=== PATIENT | male | born 1960 | race Caucasian/White ===

== ENCOUNTER → 2016-05-20 | Outpatient (CLI) | payer OTHER ==
[2016-05-20 10:18] LABS: INR 2.2
== END ==
LOC: M LAB 09:37
PROVIDERS: ATTEND Internal Medicine Cardiovascular Disease
DX: Z51.81 Encounter for therapeutic drug level monitoring (principal); Z79.01 Long term (current) use of anticoagulants; I74.8 Embolism and thrombosis of other arteries

== ENCOUNTER → 2016-06-18 | Outpatient (CLI) | payer OTHER ==
[2016-06-18 08:11] LABS: INR 2.67
== END ==
LOC: M LAB 07:33
PROVIDERS: ATTEND Internal Medicine Cardiovascular Disease
DX: I74.8 Embolism and thrombosis of other arteries (principal)

== ENCOUNTER → 2016-07-15 | Outpatient (CLI) | payer OTHER ==
[2016-07-15 07:21] LABS: INR 2.72
== END ==
LOC: M LAB 06:36
PROVIDERS: ATTEND Internal Medicine Cardiovascular Disease
DX: Z51.81 Encounter for therapeutic drug level monitoring (principal); Z79.01 Long term (current) use of anticoagulants

== ENCOUNTER → 2016-08-07 | Outpatient (CLI) | payer OTHER ==
[2016-08-07 07:45] LABS: INR 2.08
== END ==
LOC: M LAB 07:11
PROVIDERS: ATTEND Internal Medicine Cardiovascular Disease
DX: Z51.81 Encounter for therapeutic drug level monitoring (principal); Z79.01 Long term (current) use of anticoagulants; E78.2 Mixed hyperlipidemia

== ENCOUNTER → 2016-08-31 | Outpatient (CLI) | payer OTHER ==
[2016-08-31 08:02] LABS: ALBUMIN 3.9 GM/DL (3.2-5.2); ALBUMIN/GLOBULIN RATIO 1.15 (1.00-1.93); ALKALINE PHOSPHATASE 170 U/L (45-117); ALT/SGPT 16 U/L (12-78); ANION GAP 7 MEQ/L (8-16); AST/SGOT 27 U/L (15-37); BILIRUBIN,TOTAL 0.4 MG/DL (0.2-1.0); BLOOD UREA NITROGEN 15 MG/DL (7-18); CALCIUM LEVEL 8.7 MG/DL (8.5-10.1); CARBON DIOXIDE LEVEL 28 MEQ/L (21-32); CHLORIDE LEVEL 106 MEQ/L (98-107); CHOLESTEROL LEVEL 136 MG/DL (<200); CREATININE FOR GFR 1.25 MG/DL (0.70-1.30); GLOMERULAR FILTRATION RATE > 60.0 (>56); GLUCOSE, FASTING 98 MG/DL (70-105); POTASSIUM SERUM 4.2 MEQ/L (3.5-5.1); SODIUM LEVEL 141 MEQ/L (136-145); TOTAL PROTEIN 7.3 GM/DL (6.4-8.2); TRIGLYCERIDES LEVEL 145 MG/DL (<150)
== END ==
LOC: M LAB 06:56
PROVIDERS: ATTEND Nurse Practitioner Family
DX: E78.5 Hyperlipidemia, unspecified (principal)

== ENCOUNTER → 2016-09-07 | Outpatient (CLI) | payer OTHER ==
[2016-09-07 09:35] LABS: INR 1.97
== END ==
LOC: M LAB 09:02
PROVIDERS: ATTEND Internal Medicine Cardiovascular Disease
DX: Z51.81 Encounter for therapeutic drug level monitoring (principal); Z79.01 Long term (current) use of anticoagulants

== ENCOUNTER → 2016-09-18 | Outpatient (CLI) | payer OTHER ==
[2016-09-18 09:16] LABS: INR 1.94
== END ==
LOC: M LAB 08:49
PROVIDERS: ATTEND Internal Medicine Cardiovascular Disease
DX: Z51.81 Encounter for therapeutic drug level monitoring (principal); Z79.01 Long term (current) use of anticoagulants

== ENCOUNTER → 2016-10-02 | Outpatient (CLI) | payer OTHER ==
[2016-10-02 09:58] LABS: INR 2.08
== END ==
LOC: M LAB 08:58
PROVIDERS: ATTEND Internal Medicine Cardiovascular Disease
DX: Z51.81 Encounter for therapeutic drug level monitoring (principal); Z79.01 Long term (current) use of anticoagulants

== ENCOUNTER → 2016-10-16 | Outpatient (CLI) | payer OTHER ==
[2016-10-16 08:17] LABS: INR 2.23
== END ==
LOC: M LAB 06:55
PROVIDERS: ATTEND Internal Medicine Cardiovascular Disease
DX: Z79.01 Long term (current) use of anticoagulants (principal)

== ENCOUNTER → 2016-11-13 | Outpatient (CLI) | payer OTHER ==
[2016-11-13 09:38] LABS: INR 1.9
== END ==
LOC: M LAB 09:07
PROVIDERS: ATTEND Internal Medicine Cardiovascular Disease
DX: Z51.81 Encounter for therapeutic drug level monitoring (principal); Z79.01 Long term (current) use of anticoagulants

== ENCOUNTER → 2016-11-27 | Outpatient (CLI) | payer OTHER ==
[2016-11-27 10:09] LABS: INR 2.36
== END ==
LOC: M LAB 09:11
PROVIDERS: ATTEND Internal Medicine Cardiovascular Disease
DX: Z79.01 Long term (current) use of anticoagulants (principal); Z51.81 Encounter for therapeutic drug level monitoring

== ENCOUNTER → 2016-12-09 | Outpatient (REF) | payer OTHER ==
[2016-12-09 14:35] LABS: MEAN CORPUSCULAR HEMOGLOBIN 31.3 pg (27.0-33.0); MEAN CORPUSCULAR HGB CONC 34.6 g/dl (32.0-36.5); MEAN CORPUSCULAR VOLUME 90.5 fl (80.0-96.0); RED CELL DISTRIBUTION WIDTH 13.4 % (11.5-14.5); WHITE BLOOD COUNT 9.3 K/mm3 (4.0-10.0)
[2016-12-09 14:38] LABS: ALBUMIN 3.9 GM/DL (3.2-5.2); ALBUMIN/GLOBULIN RATIO 1.18 (1.00-1.93); ALKALINE PHOSPHATASE 133 U/L (45-117); ALT/SGPT 17 U/L (12-78); ANION GAP 10 MEQ/L (8-16); AST/SGOT 25 U/L (15-37); BILIRUBIN,TOTAL 0.4 MG/DL (0.2-1.0); BLOOD UREA NITROGEN 13 MG/DL (7-18); CALCIUM LEVEL 8.6 MG/DL (8.5-10.1); CARBON DIOXIDE LEVEL 26 MEQ/L (21-32); CHLORIDE LEVEL 108 MEQ/L (98-107); CHOLESTEROL LEVEL 137 MG/DL (<200); CREATININE FOR GFR 1.19 MG/DL (0.70-1.30); GLOMERULAR FILTRATION RATE > 60.0 (>56); GLUCOSE, FASTING 95 MG/DL (70-105); POTASSIUM SERUM 3.8 MEQ/L (3.5-5.1); SODIUM LEVEL 144 MEQ/L (136-145); TOTAL PROTEIN 7.2 GM/DL (6.4-8.2); TRIGLYCERIDES LEVEL 297 MG/DL (<150)
== END ==
LOC: M LAB REF 13:42
PROVIDERS: ATTEND Nurse Practitioner Family
DX: E78.5 Hyperlipidemia, unspecified (principal); E55.9 Vitamin D deficiency, unspecified; I25.10 Atherosclerotic heart disease of native coronary artery without angina pectoris; Z12.5 Encounter for screening for malignant neoplasm of prostate; I10 Essential (primary) hypertension; R53.81 Other malaise

== ENCOUNTER → 2016-12-11 | Outpatient (CLI) | payer OTHER ==
[2016-12-11 10:37] LABS: INR 1.87
== END ==
LOC: M LAB 09:18
PROVIDERS: ATTEND Internal Medicine Cardiovascular Disease
DX: Z51.81 Encounter for therapeutic drug level monitoring (principal); Z79.01 Long term (current) use of anticoagulants

== ENCOUNTER → 2016-12-25 | Outpatient (CLI) | payer OTHER ==
[2016-12-25 09:54] LABS: INR 2.24
== END ==
LOC: M LAB 09:10
PROVIDERS: ATTEND Internal Medicine Cardiovascular Disease
DX: Z51.81 Encounter for therapeutic drug level monitoring (principal); Z79.01 Long term (current) use of anticoagulants

== ENCOUNTER → 2017-01-08 | Outpatient (CLI) | payer OTHER ==
[2017-01-08 11:52] LABS: INR 2.06
== END ==
LOC: M LAB 09:55
PROVIDERS: ATTEND Internal Medicine Cardiovascular Disease
DX: I51.3 Intracardiac thrombosis, not elsewhere classified (principal)

== ENCOUNTER → 2017-01-22 | Outpatient (CLI) | payer OTHER ==
[2017-01-22 10:18] LABS: INR 2.83
== END ==
LOC: M LAB 09:10
PROVIDERS: ATTEND Internal Medicine Cardiovascular Disease
DX: I51.3 Intracardiac thrombosis, not elsewhere classified (principal)

== ENCOUNTER → 2017-02-09 | Outpatient (REF) | payer OTHER ==
[2017-02-09 14:40] LABS: BASO % 0.2 % (0.0-1.0); EOS # 0.3 10^3/uL (0.0-0.50); EOS % 3.7 % (0.0-3.0); IMMATURE GRANULOCYTE % 0.3 % (0-0); LYMPH # 2.3 10^3/uL (1.5-4.5); LYMPH % 26.1 % (24.0-44.0); MEAN CORPUSCULAR HEMOGLOBIN 30.2 pg (27.0-33.0); MEAN CORPUSCULAR HGB CONC 33.3 g/dl (32.0-36.5); MEAN CORPUSCULAR VOLUME 90.7 fl (80.0-96.0); MONO # 0.8 10^3/uL (0.0-0.8); MONO % 9.7 % (0.0-5.0); NEUTROPHILS # 5.2 10^3/uL (1.8-7.7); PLATELET COUNT, AUTOMATED 333 10^3/uL (150-450); RED CELL DISTRIBUTION WIDTH 13.6 % (11.5-14.5); WHITE BLOOD COUNT 8.7 10^3/uL (4.0-10.0)
== END ==
LOC: M LAB REF 11:51
PROVIDERS: ATTEND Nurse Practitioner Family
DX: D64.9 Anemia, unspecified (principal); Z79.01 Long term (current) use of anticoagulants

== ENCOUNTER → 2017-02-12 | Outpatient (CLI) | payer OTHER ==
[2017-02-12 10:19] LABS: INR 2.64
== END ==
LOC: M LAB 09:27
PROVIDERS: ATTEND Internal Medicine Cardiovascular Disease
DX: I51.3 Intracardiac thrombosis, not elsewhere classified (principal)

== ENCOUNTER → 2017-04-09 | Outpatient (CLI) | payer OTHER ==
[2017-04-09 10:45] LABS: INR 2.26
== END ==
LOC: M LAB 09:33
PROVIDERS: ATTEND Internal Medicine Cardiovascular Disease
DX: I51.3 Intracardiac thrombosis, not elsewhere classified (principal)

== ENCOUNTER → 2017-05-07 | Outpatient (CLI) | payer OTHER ==
[2017-05-07 09:25] LABS: INR 2.44
== END ==
LOC: M LAB 08:51
DX: I51.3 Intracardiac thrombosis, not elsewhere classified (principal)
CPT/HCPCS: 85610

== ENCOUNTER → 2017-05-11 | Outpatient (REF) | payer OTHER ==
[2017-05-11 12:19] LABS: BASO % 0.3 % (0.0-1.0); EOS # 0.4 10^3/uL (0.0-0.50); EOS % 4.6 % (0.0-3.0); HEMATOCRIT 40.3 % (42.0-52.0); HEMOGLOBIN 13.8 g/dl (14.0-18.0); IMMATURE GRANULOCYTE % 0.4 % (0-0); LYMPH # 2.4 10^3/uL (1.5-4.5); LYMPH % 25.6 % (24.0-44.0); MEAN CORPUSCULAR HEMOGLOBIN 30.3 pg (27.0-33.0); MEAN CORPUSCULAR HGB CONC 34.2 g/dl (32.0-36.5); MEAN CORPUSCULAR VOLUME 88.6 fl (80.0-96.0); MONO % 10.7 % (0.0-5.0); NEUTROPHILS # 5.4 10^3/uL (1.8-7.7); NEUTROPHILS % 58.4 % (36.0-66.0); PLATELET COUNT, AUTOMATED 336 10^3/uL (150-450); RED BLOOD COUNT 4.55 10^6/uL (4.30-6.10); RED CELL DISTRIBUTION WIDTH 13.5 % (11.5-14.5); WHITE BLOOD COUNT 9.2 10^3/uL (4.0-10.0)
[2017-05-11 12:54] LABS: TOTAL 25(OH) VITAMIN D 37.1 NG/ML (30.0-100.0)
[2017-05-11 12:56] LABS: ALBUMIN 3.8 GM/DL (3.2-5.2); ALBUMIN/GLOBULIN RATIO 1.19 (1.00-1.93); ALKALINE PHOSPHATASE 124 U/L (45-117); ALT/SGPT 15 U/L (12-78); ANION GAP 7 MEQ/L (8-16); AST/SGOT 23 U/L (7-37); BILIRUBIN,TOTAL 0.4 MG/DL (0.2-1.0); BLOOD UREA NITROGEN 12 MG/DL (7-18); CALCIUM LEVEL 8.6 MG/DL (8.5-10.1); CARBON DIOXIDE LEVEL 28 MEQ/L (21-32); CHLORIDE LEVEL 108 MEQ/L (98-107); CHOLESTEROL LEVEL 136 MG/DL (<200); CHOLESTEROL RISK RATIO 4.387 (<5); CREATININE FOR GFR 1.22 MG/DL (0.70-1.30); GLOMERULAR FILTRATION RATE > 60.0 (>56); GLUCOSE, FASTING 90 MG/DL (70-105); HDL CHOLESTEROL 31 MG/DL (>40); LDL CHOLESTEROL 45.6 MG/DL (<100); NON-HDL-C 105 MG/DL; SODIUM LEVEL 143 MEQ/L (136-145); TRIGLYCERIDES LEVEL 297 MG/DL (<150)
== END ==
LOC: M LAB REF 11:59
DX: I10 Essential (primary) hypertension (principal); E55.9 Vitamin D deficiency, unspecified
CPT/HCPCS: 82306

== ENCOUNTER → 2017-06-04 | Outpatient (CLI) | payer OTHER ==
[2017-06-04 08:54] LABS: INR 2.52; PROTHROMBIN TIME 28.2 SECONDS (12.4-14.5)
== END ==
LOC: M LAB 08:06
DX: I51.3 Intracardiac thrombosis, not elsewhere classified (principal)
CPT/HCPCS: 85610

== ENCOUNTER → 2017-07-09 | Outpatient (CLI) | payer OTHER ==
[2017-07-09 09:54] LABS: INR 2.34; PROTHROMBIN TIME 26.5 SECONDS (12.4-14.5)
== END ==
LOC: M LAB 08:34
DX: I51.3 Intracardiac thrombosis, not elsewhere classified (principal)
CPT/HCPCS: 85610

== ENCOUNTER → 2017-07-30 | Outpatient (CLI) | payer OTHER ==
[2017-07-30 08:41] LABS: INR 2.36; PROTHROMBIN TIME 26.7 SECONDS (12.4-14.5)
== END ==
LOC: M LAB 07:29
DX: I51.3 Intracardiac thrombosis, not elsewhere classified (principal)
CPT/HCPCS: 85610

== ENCOUNTER → 2017-07-30 | Outpatient (CLI) | payer OTHER ==
[2017-07-30 08:17] LABS: BASO % 0.1 % (0.0-1.0); EOS # 0.3 10^3/uL (0.0-0.50); HEMATOCRIT 41.3 % (42.0-52.0); HEMOGLOBIN 14.2 g/dl (14.0-18.0); IMMATURE GRANULOCYTE % 0.4 % (0-3.0); LYMPH # 2.2 10^3/uL (1.5-4.5); LYMPH % 26.8 % (24.0-44.0); MEAN CORPUSCULAR HEMOGLOBIN 30.7 pg (27.0-33.0); MEAN CORPUSCULAR HGB CONC 34.4 g/dl (32.0-36.5); MEAN CORPUSCULAR VOLUME 89.2 fl (80.0-96.0); MONO # 0.8 10^3/uL (0.0-0.8); MONO % 10.1 % (0.0-5.0); NEUTROPHILS # 4.9 10^3/uL (1.8-7.7); NEUTROPHILS % 58.6 % (36.0-66.0); PLATELET COUNT, AUTOMATED 304 10^3/uL (150-450); RED BLOOD COUNT 4.63 10^6/uL (4.30-6.10); RED CELL DISTRIBUTION WIDTH 13.6 % (11.5-14.5); WHITE BLOOD COUNT 8.3 10^3/uL (4.0-10.0)
[2017-07-30 08:51] LABS: ANION GAP 7 MEQ/L (8-16); BLOOD UREA NITROGEN 12 MG/DL (7-18); CALCIUM LEVEL 8.7 MG/DL (8.5-10.1); CARBON DIOXIDE LEVEL 29 MEQ/L (21-32); CHLORIDE LEVEL 106 MEQ/L (98-107); CREATININE FOR GFR 1.21 MG/DL (0.70-1.30); GLOMERULAR FILTRATION RATE > 60.0 (>56); GLUCOSE, FASTING 110 MG/DL (70-100); SODIUM LEVEL 142 MEQ/L (136-145)
[2017-07-30 14:31] LABS: INR 2.36; PROTHROMBIN TIME 26.7 SECONDS (12.4-14.5)
== END ==
LOC: M LAB 07:34
DX: I35.9 Nonrheumatic aortic valve disorder, unspecified (principal)
CPT/HCPCS: 80048

== ENCOUNTER → 2017-08-05 | Outpatient (CLI) | payer OTHER ==
[2017-08-05 08:54] LABS: INR 2.49; PROTHROMBIN TIME 27.9 SECONDS (12.4-14.5)
== END ==
LOC: M LAB 07:56
DX: I35.9 Nonrheumatic aortic valve disorder, unspecified (principal)
CPT/HCPCS: 85610

== ENCOUNTER → 2017-08-27 | Outpatient (CLI) | payer OTHER ==
[2017-08-27 10:19] LABS: INR 2.65; PROTHROMBIN TIME 29.4 SECONDS (12.4-14.5)
== END ==
LOC: M LAB 09:21
DX: I51.3 Intracardiac thrombosis, not elsewhere classified (principal)
CPT/HCPCS: 85610

== ENCOUNTER → 2017-09-24 | Outpatient (CLI) | payer OTHER ==
[2017-09-24 09:34] LABS: INR 2.18; PROTHROMBIN TIME 25.1 SECONDS (12.4-14.5)
== END ==
LOC: M LAB 08:13
DX: I51.3 Intracardiac thrombosis, not elsewhere classified (principal)
CPT/HCPCS: 85610

== ENCOUNTER → 2017-10-22 | Outpatient (CLI) | payer OTHER ==
[2017-10-22 09:40] LABS: PROTHROMBIN TIME 29.8 SECONDS (12.4-14.5)
== END ==
LOC: M LAB 08:46
DX: I25.5 Ischemic cardiomyopathy (principal); Z79.01 Long term (current) use of anticoagulants
CPT/HCPCS: 85610

== ENCOUNTER → 2017-11-19 | Outpatient (CLI) | payer OTHER ==
[2017-11-19 08:21] LABS: INR 2.59; PROTHROMBIN TIME 28.3 SECONDS (12.1-14.4)
== END ==
LOC: M LAB 07:27
DX: I34.9 Nonrheumatic mitral valve disorder, unspecified (principal)
CPT/HCPCS: 85610

== ENCOUNTER → 2017-12-17 | Outpatient (CLI) | payer OTHER ==
[2017-12-17 09:01] LABS: INR 2.31; PROTHROMBIN TIME 25.8 SECONDS (12.1-14.4)
== END ==
LOC: M LAB 07:55
DX: I34.9 Nonrheumatic mitral valve disorder, unspecified (principal)
CPT/HCPCS: 85610

== ENCOUNTER → 2018-01-14 | Outpatient (CLI) | payer OTHER ==
[2018-01-14 09:53] LABS: INR 2.65; PROTHROMBIN TIME 28.8 SECONDS (12.1-14.4)
== END ==
LOC: M LAB 08:54
DX: I34.9 Nonrheumatic mitral valve disorder, unspecified (principal); Z79.01 Long term (current) use of anticoagulants
CPT/HCPCS: 85610

== ENCOUNTER → 2018-02-11 | Outpatient (CLI) | payer OTHER ==
[2018-02-11 09:34] LABS: PROTHROMBIN TIME 28.4 SECONDS (12.1-14.4)
== END ==
LOC: M LAB 08:24
DX: I34.9 Nonrheumatic mitral valve disorder, unspecified (principal)
CPT/HCPCS: 85610

== ENCOUNTER → 2018-02-13 | Outpatient (CLI) | payer OTHER | LOC: M SLEEP 20:00 | DX: R40.0 Somnolence (principal) | CPT/HCPCS: 95810 ==

== ENCOUNTER → 2018-03-11 | Outpatient (CLI) | payer OTHER ==
[2018-03-11 10:13] LABS: INR 2.51; PROTHROMBIN TIME 27.6 SECONDS (12.1-14.4)
== END ==
LOC: M LAB 08:10
DX: I34.9 Nonrheumatic mitral valve disorder, unspecified (principal); Z79.01 Long term (current) use of anticoagulants
CPT/HCPCS: 85610

== ENCOUNTER → 2018-03-22 | Outpatient (CLI) | payer OTHER | LOC: M SLEEP 19:39 | DX: G47.33 Obstructive sleep apnea (adult) (pediatric) (principal) | CPT/HCPCS: 95811 ==

== ENCOUNTER → 2018-04-08 | Outpatient (CLI) | payer OTHER ==
[2018-04-08 07:54] LABS: INR 2.54; PROTHROMBIN TIME 27.9 SECONDS (12.1-14.4)
[2018-04-08 08:11] LABS: ALT/SGPT 22 U/L (12-78); AST/SGOT 26 U/L (7-37); CHOLESTEROL LEVEL 139 MG/DL (<200); CHOLESTEROL RISK RATIO 4.088 (<5); CPK CREATINE PHOSPHOKINASE 97 U/L (39-308); HDL CHOLESTEROL 34 MG/DL (>40); NON-HDL-C 105 MG/DL
[2018-04-08 09:17] LABS: LDL CHOLESTEROL 55 MG/DL (<100); TRIGLYCERIDES LEVEL 252 MG/DL (<150)
== END ==
LOC: M LAB 07:05
DX: I34.9 Nonrheumatic mitral valve disorder, unspecified (principal); Z79.01 Long term (current) use of anticoagulants; I25.5 Ischemic cardiomyopathy
CPT/HCPCS: 84460

== ENCOUNTER → 2018-04-25 | Outpatient (CLI) | payer OTHER ==
[2018-04-25 08:46] LABS: INR 1.77; PROTHROMBIN TIME 20.9 SECONDS (12.1-14.4)
== END ==
LOC: M LAB 07:34
PROVIDERS: ATTEND Internal Medicine Cardiovascular Disease
DX: I34.0 Nonrheumatic mitral (valve) insufficiency (principal); Z79.01 Long term (current) use of anticoagulants

== ENCOUNTER → 2018-04-29 | Outpatient (CLI) | payer OTHER ==
[2018-04-29 08:04] LABS: INR 2.13; PROTHROMBIN TIME 24.2 SECONDS (12.1-14.4)
== END ==
LOC: M LAB 06:56
PROVIDERS: ATTEND Internal Medicine Cardiovascular Disease
DX: I34.9 Nonrheumatic mitral valve disorder, unspecified (principal); Z79.01 Long term (current) use of anticoagulants

== ENCOUNTER → 2018-05-27 | Outpatient (CLI) | payer OTHER ==
[2018-05-27 09:16] LABS: INR 2.67
== END ==
LOC: M LAB 08:10
PROVIDERS: ATTEND Internal Medicine Cardiovascular Disease
DX: Z79.01 Long term (current) use of anticoagulants (principal); I34.9 Nonrheumatic mitral valve disorder, unspecified

== ENCOUNTER → 2018-06-02 | Outpatient (REF) | payer OTHER, MEDICAID ==
[2018-06-02 20:28] LABS: BASO % 0.4 % (0.0-1.0); EOS # 0.3 10^3/uL (0.0-0.50); EOS % 3.5 % (0.0-3.0); HEMATOCRIT 40.8 % (42.0-52.0); HEMOGLOBIN 13.4 g/dl (13.5-17.5); LYMPH # 2.1 10^3/uL (1.5-4.5); LYMPH % 24.8 % (24.0-44.0); MEAN CORPUSCULAR HEMOGLOBIN 30.5 pg (27.0-33.0); MEAN CORPUSCULAR HGB CONC 32.8 g/dl (32.0-36.5); MEAN CORPUSCULAR VOLUME 92.9 fl (80.0-96.0); MONO % 12.3 % (0.0-5.0); NEUTROPHILS % 58.8 % (36.0-66.0); PLATELET COUNT, AUTOMATED 326 10^3/uL (150-450); RED BLOOD COUNT 4.39 10^6/uL (4.30-6.10); WHITE BLOOD COUNT 8.5 10^3/uL (4.0-10.0)
[2018-06-02 20:43] LABS: ALBUMIN 3.7 GM/DL (3.2-5.2); ALT/SGPT 22 U/L (12-78); BILIRUBIN,TOTAL 0.3 MG/DL (0.2-1.0); BLOOD UREA NITROGEN 16 MG/DL (7-18); CALCIUM LEVEL 8.6 MG/DL (8.5-10.1); CARBON DIOXIDE LEVEL 28 MEQ/L (21-32); CHLORIDE LEVEL 107 MEQ/L (98-107); CHOLESTEROL LEVEL 128 MG/DL (<200); CHOLESTEROL RISK RATIO 4.129 (<5); CREATININE FOR GFR 1.15 MG/DL (0.70-1.30); GLOMERULAR FILTRATION RATE > 60.0 (>56); GLUCOSE, FASTING 97 MG/DL (70-100); HDL CHOLESTEROL 31 MG/DL (>40); LDL CHOLESTEROL 39 MG/DL (<100); NON-HDL-C 97 MG/DL; POTASSIUM SERUM 4.3 MEQ/L (3.5-5.1); SODIUM LEVEL 142 MEQ/L (136-145); THYROID STIMULATING HORMONE 0.773 uIU/ML (0.358-3.740); TOTAL PROTEIN 6.8 GM/DL (6.4-8.2); TRIGLYCERIDES LEVEL 292 MG/DL (<150)
[2018-06-02 20:52] LABS: HEMOGLOBIN A1c 5.9 %
== END ==
LOC: M LAB REF 18:49
PROVIDERS: ATTEND Nurse Practitioner Family
DX: E78.5 Hyperlipidemia, unspecified (principal)

== ENCOUNTER → 2018-06-24 | Outpatient (CLI) | payer OTHER ==
[2018-06-24 08:39] LABS: INR 2.11; PROTHROMBIN TIME 24.1 SECONDS (12.1-14.4)
== END ==
LOC: M LAB 08:00
PROVIDERS: ATTEND Internal Medicine Cardiovascular Disease
DX: Z51.81 Encounter for therapeutic drug level monitoring (principal); Z79.01 Long term (current) use of anticoagulants; I34.9 Nonrheumatic mitral valve disorder, unspecified

== ENCOUNTER → 2018-07-21 | Outpatient (CLI) | payer OTHER ==
--- NOTE | 2018-07-26 16:37 | SLEEPCENT ---
DATE OF PROCEDURE: 07/21/2018 ORDERED BY: Bertin Trejo Nocturnal polysomnography was performed for the titration of pressure therapy in this patient with obstructive sleep apnea syndrome. For testing a [email or web address] Simplus full face mask of medium size was used, 12 cm of water pressure was initially applied to the circuit and the lights were extinguished. 7 hours and 46 minutes of data were reviewed. There were 404 minutes of sleep identified. Sleep latency was short at 6 minutes. Rapid eye movement (REM) latency was normal at 84-1/2 minutes. Sleep architecture was good with 4 REM cycles. Overall sleep efficiency 88.6%. The patient's electrocardiogram showed a sinus rhythm with an average heart rate of 64 beats per minute. EEG showed normal waveforms for awake and sleep. Respiratory events were best palliated with continuous positive airway pressure (CPAP) at a pressure of 15. There was some limb activity. Limb movement arousal index was 2.5. IMPRESSION: Obstructive sleep apnea syndrome (G47.33) RECOMMENDATIONS: Nightly use of pressure therapy 15 cm of water.
== END ==
LOC: M SLEEP 19:50
PROVIDERS: ATTEND Physician Assistant
DX: G47.33 Obstructive sleep apnea (adult) (pediatric) (principal)

== ENCOUNTER → 2018-07-22 | Outpatient (CLI) | payer OTHER ==
[2018-07-22 07:41] LABS: INR 2.5; PROTHROMBIN TIME 27.5 SECONDS (12.1-14.4)
== END ==
LOC: M LAB 06:52
PROVIDERS: ATTEND Internal Medicine Cardiovascular Disease
DX: Z51.81 Encounter for therapeutic drug level monitoring (principal); Z79.01 Long term (current) use of anticoagulants; I34.9 Nonrheumatic mitral valve disorder, unspecified

== ENCOUNTER → 2018-08-19 | Outpatient (CLI) | payer OTHER ==
[2018-08-19 08:00] LABS: INR 2.38; PROTHROMBIN TIME 26.5 SECONDS (12.1-14.4)
== END ==
LOC: M LAB 06:54
PROVIDERS: ATTEND Internal Medicine Cardiovascular Disease
DX: Z51.81 Encounter for therapeutic drug level monitoring (principal); Z79.01 Long term (current) use of anticoagulants; I34.9 Nonrheumatic mitral valve disorder, unspecified

== ENCOUNTER → 2018-09-05 | Outpatient (REF) | payer OTHER ==
[2018-09-05 18:18] LABS: BASO % 0.2 % (0.0-1.0); EOS # 0.2 10^3/uL (0.0-0.50); EOS % 2.2 % (0.0-3.0); HEMATOCRIT 42.5 % (42.0-52.0); HEMOGLOBIN 14.1 g/dl (13.5-17.5); LYMPH # 2.1 10^3/uL (1.5-4.5); LYMPH % 24.7 % (24.0-44.0); MEAN CORPUSCULAR HEMOGLOBIN 30.1 pg (27.0-33.0); MEAN CORPUSCULAR HGB CONC 33.2 g/dl (32.0-36.5); MEAN CORPUSCULAR VOLUME 90.8 fl (80.0-96.0); MONO # 0.8 10^3/uL (0.0-0.8); MONO % 9.5 % (0.0-5.0); NEUTROPHILS # 5.4 10^3/uL (1.8-7.7); NEUTROPHILS % 62.9 % (36.0-66.0); PLATELET COUNT, AUTOMATED 313 10^3/uL (150-450); RED BLOOD COUNT 4.68 10^6/uL (4.30-6.10); WHITE BLOOD COUNT 8.6 10^3/uL (4.0-10.0)
[2018-09-05 19:02] LABS: ALBUMIN 4.1 GM/DL (3.2-5.2); ALT/SGPT 24 U/L (12-78); BILIRUBIN,TOTAL 0.4 MG/DL (0.2-1.0); BLOOD UREA NITROGEN 12 MG/DL (7-18); CALCIUM LEVEL 8.5 MG/DL (8.5-10.1); CARBON DIOXIDE LEVEL 27 MEQ/L (21-32); CHLORIDE LEVEL 105 MEQ/L (98-107); CHOLESTEROL LEVEL 146 MG/DL (<200); CHOLESTEROL RISK RATIO 4.055 (<5); CREATININE FOR GFR 1.22 MG/DL (0.70-1.30); GLOMERULAR FILTRATION RATE > 60.0 (>56); GLUCOSE, FASTING 89 MG/DL (70-100); HDL CHOLESTEROL 36 MG/DL (>40); LDL CHOLESTEROL 65 MG/DL (<100); NON-HDL-C 110 MG/DL; POTASSIUM SERUM 3.9 MEQ/L (3.5-5.1); SODIUM LEVEL 140 MEQ/L (136-145); TOTAL PROTEIN 7.1 GM/DL (6.4-8.2); TRIGLYCERIDES LEVEL 226 MG/DL (<150)
[2018-09-05 20:14] LABS: HEMOGLOBIN A1c 5.9 %
== END ==
LOC: M LAB REF 16:42
PROVIDERS: ATTEND Nurse Practitioner Family
DX: Z13.9 Encounter for screening, unspecified (principal); E78.5 Hyperlipidemia, unspecified; I10 Essential (primary) hypertension

== ENCOUNTER → 2018-09-16 | Outpatient (CLI) | payer OTHER ==
[2018-09-16 07:51] LABS: INR 2.36; PROTHROMBIN TIME 26.3 SECONDS (12.1-14.4)
== END ==
LOC: M LAB 07:23
PROVIDERS: ATTEND Internal Medicine Cardiovascular Disease
DX: I34.9 Nonrheumatic mitral valve disorder, unspecified (principal); Z79.01 Long term (current) use of anticoagulants

== ENCOUNTER → 2018-10-13 | Outpatient (CLI) | payer OTHER ==
[2018-10-13 07:47] LABS: INR 2.14; PROTHROMBIN TIME 24.3 SECONDS (12.1-14.4)
== END ==
LOC: M LAB 06:56
PROVIDERS: ATTEND Internal Medicine Cardiovascular Disease
DX: I34.9 Nonrheumatic mitral valve disorder, unspecified (principal); Z79.01 Long term (current) use of anticoagulants

== ENCOUNTER → 2018-11-10 | Outpatient (CLI) | payer OTHER ==
[2018-11-10 07:29] LABS: INR 2.61; PROTHROMBIN TIME 27.8 SECONDS (11.8-14.0)
== END ==
LOC: M LAB 06:53
PROVIDERS: ATTEND Internal Medicine Cardiovascular Disease
DX: I34.9 Nonrheumatic mitral valve disorder, unspecified (principal); Z79.01 Long term (current) use of anticoagulants

== ENCOUNTER → 2018-12-08 | Outpatient (CLI) | payer OTHER ==
[2018-12-08 08:57] LABS: INR 2.71; PROTHROMBIN TIME 28.7 SECONDS (11.8-14.0)
== END ==
LOC: M LAB 06:58
PROVIDERS: ATTEND Internal Medicine Cardiovascular Disease
DX: I34.9 Nonrheumatic mitral valve disorder, unspecified (principal)

== ENCOUNTER → 2019-01-05 | Outpatient (CLI) | payer OTHER ==
[2019-01-05 08:21] LABS: INR 2.8; PROTHROMBIN TIME 29.4 SECONDS (11.8-14.0)
== END ==
LOC: M LAB 07:27
PROVIDERS: ATTEND Internal Medicine Cardiovascular Disease
DX: Z79.01 Long term (current) use of anticoagulants (principal)

== ENCOUNTER → 2019-02-02 | Outpatient (CLI) | payer OTHER ==
[2019-02-02 07:40] LABS: INR 2.45; PROTHROMBIN TIME 26.4 SECONDS (11.8-14.0)
== END ==
LOC: M LAB 07:00
PROVIDERS: ATTEND Internal Medicine Cardiovascular Disease
DX: I25.5 Ischemic cardiomyopathy (principal); I35.9 Nonrheumatic aortic valve disorder, unspecified

== ENCOUNTER → 2019-02-28 | Outpatient (REF) | payer OTHER ==
[2019-02-28 17:54] LABS: BASO % 0.4 % (0.0-1.0); EOS # 0.3 10^3/uL (0.0-0.5); EOS % 3.1 % (0.0-3.0); HEMOGLOBIN 13.7 g/dl (13.5-17.5); LYMPH # 2.2 10^3/uL (1.5-5.0); LYMPH % 27.6 % (24.0-44.0); MEAN CORPUSCULAR HEMOGLOBIN 30.5 pg (27.0-33.0); MEAN CORPUSCULAR HGB CONC 32.6 g/dl (32.0-36.5); MEAN CORPUSCULAR VOLUME 93.5 fl (80.0-96.0); MONO # 0.8 10^3/uL (0.0-0.8); MONO % 10.2 % (0.0-5.0); NEUTROPHILS # 4.8 10^3/uL (1.5-8.5); NEUTROPHILS % 58.3 % (36.0-66.0); PLATELET COUNT, AUTOMATED 280 10^3/uL (150-450); RED BLOOD COUNT 4.49 10^6/uL (4.30-6.10); WHITE BLOOD COUNT 8.1 10^3/uL (4.0-10.0)
[2019-02-28 18:03] LABS: ALBUMIN 3.7 GM/DL (3.2-5.2); ALT/SGPT 28 U/L (12-78); BILIRUBIN,TOTAL 0.7 MG/DL (0.2-1.0); BLOOD UREA NITROGEN 14 MG/DL (7-18); CALCIUM LEVEL 8.9 MG/DL (8.5-10.1); CARBON DIOXIDE LEVEL 29 MEQ/L (21-32); CHLORIDE LEVEL 107 MEQ/L (98-107); CHOLESTEROL LEVEL 135 MG/DL (<200); CREATININE FOR GFR 1.19 MG/DL (0.70-1.30); GLOMERULAR FILTRATION RATE > 60.0 (>56); GLUCOSE, FASTING 92 MG/DL (70-100); HDL CHOLESTEROL 36 MG/DL (>40); LDL CHOLESTEROL 52 MG/DL (<100); NON-HDL-C 99 MG/DL; SODIUM LEVEL 143 MEQ/L (136-145); TOTAL PROTEIN 6.9 GM/DL (6.4-8.2); TRIGLYCERIDES LEVEL 234 MG/DL (<150)
[2019-02-28 20:27] LABS: HEMOGLOBIN A1c 5.8 %
== END ==
LOC: M LAB REF 17:06
PROVIDERS: ATTEND Nurse Practitioner Family
DX: E78.5 Hyperlipidemia, unspecified (principal); R73.03 Prediabetes; I10 Essential (primary) hypertension

== ENCOUNTER → 2019-03-02 | Outpatient (CLI) | payer OTHER ==
[2019-03-02 08:24] LABS: INR 2.37; PROTHROMBIN TIME 25.7 SECONDS (11.8-14.0)
== END ==
LOC: M LAB 07:42
PROVIDERS: ATTEND Internal Medicine Cardiovascular Disease
DX: I25.5 Ischemic cardiomyopathy (principal); I35.9 Nonrheumatic aortic valve disorder, unspecified

== ENCOUNTER → 2019-03-30 | Outpatient (CLI) | payer OTHER ==
[2019-03-30 08:03] LABS: INR 2.39; PROTHROMBIN TIME 25.9 SECONDS (11.8-14.0)
== END ==
LOC: M LAB 07:16
PROVIDERS: ATTEND Internal Medicine Cardiovascular Disease
DX: I25.5 Ischemic cardiomyopathy (principal); I35.9 Nonrheumatic aortic valve disorder, unspecified

== ENCOUNTER → 2019-04-27 | Outpatient (CLI) | payer OTHER ==
[2019-04-27 08:01] LABS: INR 2.72; PROTHROMBIN TIME 28.7 SECONDS (11.8-14.0)
== END ==
LOC: M LAB 07:24
PROVIDERS: ATTEND Internal Medicine Cardiovascular Disease
DX: I25.5 Ischemic cardiomyopathy (principal); I35.9 Nonrheumatic aortic valve disorder, unspecified

== ENCOUNTER → 2019-05-09 | Outpatient (REF) | payer OTHER, MEDICAID ==
[2019-05-09 12:56] LABS: BASO % 0.3 % (0.0-1.0); EOS # 0.3 10^3/uL (0.0-0.5); EOS % 3.5 % (0.0-3.0); HEMATOCRIT 42.2 % (42.0-52.0); HEMOGLOBIN 13.7 g/dl (13.5-17.5); LYMPH # 2.4 10^3/uL (1.5-5.0); LYMPH % 30.6 % (24.0-44.0); MEAN CORPUSCULAR HEMOGLOBIN 30.3 pg (27.0-33.0); MEAN CORPUSCULAR HGB CONC 32.5 g/dl (32.0-36.5); MEAN CORPUSCULAR VOLUME 93.4 fl (80.0-96.0); MONO # 0.8 10^3/uL (0.0-0.8); MONO % 10.8 % (0.0-5.0); NEUTROPHILS # 4.2 10^3/uL (1.5-8.5); NEUTROPHILS % 54.4 % (36.0-66.0); PLATELET COUNT, AUTOMATED 298 10^3/uL (150-450); RED BLOOD COUNT 4.52 10^6/uL (4.30-6.10); WHITE BLOOD COUNT 7.7 10^3/uL (4.0-10.0)
[2019-05-09 13:20] LABS: ALBUMIN 3.6 GM/DL (3.2-5.2); ALT/SGPT 24 U/L (12-78); BILIRUBIN,TOTAL 0.3 MG/DL (0.2-1.0); BLOOD UREA NITROGEN 14 MG/DL (7-18); CALCIUM LEVEL 8.4 MG/DL (8.5-10.1); CARBON DIOXIDE LEVEL 29 MEQ/L (21-32); CHLORIDE LEVEL 108 MEQ/L (98-107); CHOLESTEROL LEVEL 138 MG/DL (<200); CHOLESTEROL RISK RATIO 3.942 (<5); CREATININE FOR GFR 1.11 MG/DL (0.70-1.30); FREE T4 0.89 NG/DL (0.76-1.46); GLOMERULAR FILTRATION RATE > 60.0 (>56); GLUCOSE, FASTING 93 MG/DL (70-100); HDL CHOLESTEROL 35 MG/DL (>40); LDL CHOLESTEROL 62 MG/DL (<100); NON-HDL-C 103 MG/DL; POTASSIUM SERUM 3.8 MEQ/L (3.5-5.1); SODIUM LEVEL 142 MEQ/L (136-145); TRIGLYCERIDES LEVEL 206 MG/DL (<150)
[2019-05-09 13:46] LABS: HEMOGLOBIN A1c 5.9 %
== END ==
LOC: M LAB REF 12:40
PROVIDERS: ATTEND Nurse Practitioner Family
DX: R73.03 Prediabetes (principal); E78.5 Hyperlipidemia, unspecified; R79.89 Other specified abnormal findings of blood chemistry

== ENCOUNTER → 2019-06-22 | Outpatient (CLI) | payer OTHER ==
[2019-06-22 08:13] LABS: INR 2.34; PROTHROMBIN TIME 25.5 SECONDS (11.8-14.0)
== END ==
LOC: M LAB 07:10
PROVIDERS: ATTEND Internal Medicine Cardiovascular Disease
DX: I25.5 Ischemic cardiomyopathy (principal)

== ENCOUNTER → 2019-07-20 | Outpatient (CLI) | payer OTHER ==
[2019-07-20 08:30] LABS: INR 2.32; PROTHROMBIN TIME 25.3 SECONDS (11.8-14.0)
== END ==
LOC: M LAB 07:11
PROVIDERS: ATTEND Internal Medicine Cardiovascular Disease
DX: I25.5 Ischemic cardiomyopathy (principal)

== ENCOUNTER → 2019-08-10 | Outpatient (REF) | payer OTHER, MEDICAID ==
[2019-08-10 12:50] LABS: BASO % 0.4 % (0.0-1.0); EOS # 0.3 10^3/uL (0.0-0.5); EOS % 4.1 % (0.0-3.0); HEMATOCRIT 42.5 % (42.0-52.0); HEMOGLOBIN 14.2 g/dl (13.5-17.5); LYMPH # 2.4 10^3/uL (1.5-5.0); LYMPH % 29.3 % (24.0-44.0); MEAN CORPUSCULAR HEMOGLOBIN 30.6 pg (27.0-33.0); MEAN CORPUSCULAR HGB CONC 33.4 g/dl (32.0-36.5); MEAN CORPUSCULAR VOLUME 91.6 fl (80.0-96.0); MONO # 0.9 10^3/uL (0.0-0.8); MONO % 11.1 % (0.0-5.0); NEUTROPHILS # 4.4 10^3/uL (1.5-8.5); NEUTROPHILS % 54.7 % (36.0-66.0); PLATELET COUNT, AUTOMATED 274 10^3/uL (150-450); RED BLOOD COUNT 4.64 10^6/uL (4.30-6.10); WHITE BLOOD COUNT 8.1 10^3/uL (4.0-10.0)
[2019-08-10 13:05] LABS: HEMOGLOBIN A1c 6.2 %
[2019-08-10 13:11] LABS: ALBUMIN 3.7 GM/DL (3.2-5.2); ALT/SGPT 26 U/L (12-78); BILIRUBIN,TOTAL 0.6 MG/DL (0.2-1.0); BLOOD UREA NITROGEN 14 MG/DL (7-18); CALCIUM LEVEL 8.7 MG/DL (8.5-10.1); CARBON DIOXIDE LEVEL 29 MEQ/L (21-32); CHLORIDE LEVEL 108 MEQ/L (98-107); CHOLESTEROL LEVEL 140 MG/DL (<200); CHOLESTEROL RISK RATIO 4.242 (<5); CREATININE FOR GFR 1.24 MG/DL (0.70-1.30); GLOMERULAR FILTRATION RATE > 60.0 (>56); GLUCOSE, FASTING 96 MG/DL (70-100); HDL CHOLESTEROL 33 MG/DL (>40); LDL CHOLESTEROL 64 MG/DL (<100); NON-HDL-C 107 MG/DL; SODIUM LEVEL 141 MEQ/L (136-145); TRIGLYCERIDES LEVEL 215 MG/DL (<150)
== END ==
LOC: M LAB REF 12:08
PROVIDERS: ATTEND Nurse Practitioner Family
DX: E55.9 Vitamin D deficiency, unspecified (principal); E78.5 Hyperlipidemia, unspecified; D64.9 Anemia, unspecified; E66.09 Other obesity due to excess calories; R79.89 Other specified abnormal findings of blood chemistry; R73.03 Prediabetes; I10 Essential (primary) hypertension

== ENCOUNTER → 2019-08-10 | Outpatient (CLI) | payer OTHER ==
[2019-08-10 09:18] LABS: INR 2.4
== END ==
LOC: M LAB 08:30
PROVIDERS: ATTEND Internal Medicine Cardiovascular Disease
DX: I25.5 Ischemic cardiomyopathy (principal)

== ENCOUNTER → 2019-09-07 | Outpatient (CLI) | payer OTHER, MEDICAID ==
[2019-09-07 08:22] LABS: INR 2.62; PROTHROMBIN TIME 27.9 SECONDS (11.8-14.0)
== END ==
LOC: M LAB 07:37
PROVIDERS: ATTEND Internal Medicine Cardiovascular Disease
DX: I25.5 Ischemic cardiomyopathy (principal)

== ENCOUNTER → 2019-10-05 | Outpatient (CLI) | payer OTHER ==
[2019-10-05 11:00] LABS: INR 2.61; PROTHROMBIN TIME 27.8 SECONDS (11.8-14.0)
== END ==
LOC: M LAB 10:19
PROVIDERS: ATTEND Internal Medicine Cardiovascular Disease
DX: Z51.81 Encounter for therapeutic drug level monitoring (principal); Z79.01 Long term (current) use of anticoagulants; Z98.61 Coronary angioplasty status; Z95.810 Presence of automatic (implantable) cardiac defibrillator

== ENCOUNTER → 2019-11-01 | Outpatient (REF) | payer OTHER, MEDICAID ==
[2019-11-01 12:52] LABS: AMORPHOUS SEDIMENT MODERATE (NEGATIVE); APPEARANCE, URINE TURBID (CLEAR); BACTERIA, URINE AUTO NEGATIVE (NEGATIVE); BILIRUBIN, URINE AUTO NEGATIVE (NEGATIVE); BLOOD, URINE BLOOD 1+ (NEGATIVE); COLOR, URINE AMBER (YELLOW); GLUCOSE, URINE (UA) AUTO NEGATIVE (NEGATIVE); KETONE, URINE AUTO NEGATIVE (NEGATIVE); LEUKOCYTE ESTERASE, URINE AUTO NEGATIVE (NEGATIVE); MUCUS, URINE SMALL (NEGATIVE); NITRITE, URINE AUTO NEGATIVE (NEGATIVE); PROTEIN, URINE AUTO 1+ mg/dL (NEGATIVE); RBC, URINE AUTO 0 /HPF (0-3); SPECIFIC GRAVITY URINE AUTO 1.028 (1.002-1.035); SQUAMOUS EPITHELIAL CELL UR AU 0 /HPF (0-6); UROBILINOGEN, URINE AUTO 0.2 mg/dL (0.0-2.0); WBC, URINE AUTO 0 /HPF (0-3)
[2019-11-01 15:24] LABS: BASO % 0.4 % (0.0-1.0); EOS # 0.3 10^3/uL (0.0-0.5); EOS % 3.7 % (0.0-3.0); HEMATOCRIT 43.1 % (42.0-52.0); LYMPH # 2.1 10^3/uL (1.5-5.0); LYMPH % 30.1 % (24.0-44.0); MEAN CORPUSCULAR HEMOGLOBIN 30.4 pg (27.0-33.0); MEAN CORPUSCULAR HGB CONC 32.5 g/dl (32.0-36.5); MEAN CORPUSCULAR VOLUME 93.7 fl (80.0-96.0); MONO # 0.8 10^3/uL (0.0-0.8); MONO % 10.8 % (0.0-5.0); NEUTROPHILS # 3.9 10^3/uL (1.5-8.5); NEUTROPHILS % 54.6 % (36.0-66.0); PLATELET COUNT, AUTOMATED 253 10^3/uL (150-450); WHITE BLOOD COUNT 7.1 10^3/uL (4.0-10.0)
[2019-11-01 15:44] LABS: ALBUMIN 3.8 GM/DL (3.2-5.2); ALT/SGPT 23 U/L (12-78); BILIRUBIN,TOTAL 0.4 MG/DL (0.2-1.0); BLOOD UREA NITROGEN 14 MG/DL (7-18); CALCIUM LEVEL 8.8 MG/DL (8.5-10.1); CARBON DIOXIDE LEVEL 28 MEQ/L (21-32); CHLORIDE LEVEL 111 MEQ/L (98-107); CHOLESTEROL LEVEL 132 MG/DL (<200); CHOLESTEROL RISK RATIO 4.258 (<5); CREATININE FOR GFR 1.22 MG/DL (0.70-1.30); FREE T4 1.03 NG/DL (0.76-1.46); GLOMERULAR FILTRATION RATE > 60.0 (>56); GLUCOSE, FASTING 96 MG/DL (70-100); HDL CHOLESTEROL 31 MG/DL (>40); LDL CHOLESTEROL 59 MG/DL (<100); NON-HDL-C 101 MG/DL; POTASSIUM SERUM 3.8 MEQ/L (3.5-5.1); SODIUM LEVEL 145 MEQ/L (136-145); THYROID STIMULATING HORMONE 0.781 uIU/ML (0.358-3.740); TRIGLYCERIDES LEVEL 210 MG/DL (<150)
[2019-11-01 15:46] LABS: TOTAL 25(OH) VITAMIN D 40.6 NG/ML (30.0-100.0); VITAMIN B12 LEVEL 407 PG/ML
[2019-11-01 15:47] LABS: FOLATE 15.4 NG/ML
[2019-11-01 16:26] LABS: HEMOGLOBIN A1c 6.2 %
== END ==
LOC: M LAB REF 11:24
PROVIDERS: ATTEND Nurse Practitioner Family
DX: R79.89 Other specified abnormal findings of blood chemistry (principal); R73.03 Prediabetes; Z13.9 Encounter for screening, unspecified; D64.9 Anemia, unspecified; E55.9 Vitamin D deficiency, unspecified; E78.5 Hyperlipidemia, unspecified; I10 Essential (primary) hypertension

== ENCOUNTER → 2019-11-02 | Outpatient (CLI) | payer OTHER, MEDICAID ==
[2019-11-02 08:44] LABS: INR 2.71; PROTHROMBIN TIME 28.6 SECONDS (11.8-14.0)
== END ==
LOC: M LAB 07:17
PROVIDERS: ATTEND Internal Medicine Cardiovascular Disease
DX: I23.6 Thrombosis of atrium, auricular appendage, and ventricle as current complications following acute myocardial infarction (principal); I25.5 Ischemic cardiomyopathy; Z79.01 Long term (current) use of anticoagulants

== ENCOUNTER → 2019-11-08 | Outpatient (REF) | payer OTHER, MEDICAID ==
[2019-11-09 12:41] LABS: APPEARANCE, URINE CLEAR (CLEAR); BACTERIA, URINE AUTO NEGATIVE (NEGATIVE); BILIRUBIN, URINE AUTO NEGATIVE (NEGATIVE); BLOOD, URINE BLOOD 1+ (NEGATIVE); COLOR, URINE YELLOW (YELLOW); GLUCOSE, URINE (UA) AUTO NEGATIVE (NEGATIVE); KETONE, URINE AUTO NEGATIVE (NEGATIVE); LEUKOCYTE ESTERASE, URINE AUTO NEGATIVE (NEGATIVE); MUCUS, URINE SMALL (NEGATIVE); NITRITE, URINE AUTO NEGATIVE (NEGATIVE); PROTEIN, URINE AUTO NEGATIVE (NEGATIVE); RBC, URINE AUTO 4 /HPF (0-3); SPECIFIC GRAVITY URINE AUTO 1.008 (1.002-1.035); SQUAMOUS EPITHELIAL CELL UR AU 0 /HPF (0-6); UROBILINOGEN, URINE AUTO 0.2 mg/dL (0.0-2.0); WBC, URINE AUTO 2 /HPF (0-3)
== END ==
LOC: M LAB REF 11:52
PROVIDERS: ATTEND Nurse Practitioner Family
DX: R31.9 Hematuria, unspecified (principal)

== ENCOUNTER → 2019-11-28 | Outpatient (REF) | payer OTHER, MEDICAID ==
[2019-11-28 19:45] LABS: APPEARANCE, URINE CLEAR (CLEAR); BACTERIA, URINE AUTO NEGATIVE (NEGATIVE); BILIRUBIN, URINE AUTO NEGATIVE (NEGATIVE); BLOOD, URINE BLOOD 1+ (NEGATIVE); COLOR, URINE YELLOW (YELLOW); GLUCOSE, URINE (UA) AUTO NEGATIVE (NEGATIVE); KETONE, URINE AUTO NEGATIVE (NEGATIVE); LEUKOCYTE ESTERASE, URINE AUTO NEGATIVE (NEGATIVE); MUCUS, URINE SMALL (NEGATIVE); NITRITE, URINE AUTO NEGATIVE (NEGATIVE); PROTEIN, URINE AUTO NEGATIVE (NEGATIVE); RBC, URINE AUTO 11 /HPF (0-3); SPECIFIC GRAVITY URINE AUTO 1.021 (1.002-1.035); SQUAMOUS EPITHELIAL CELL UR AU 0 /HPF (0-6); UROBILINOGEN, URINE AUTO 0.2 mg/dL (0.0-2.0); WBC, URINE AUTO 2 /HPF (0-3)
== END ==
LOC: M SMT 17:26
PROVIDERS: ATTEND Nurse Practitioner Family
DX: N39.0 Urinary tract infection, site not specified (principal)

== ENCOUNTER → 2019-11-30 | Outpatient (CLI) | payer OTHER ==
[2019-11-30 08:27] LABS: INR 3.08; PROTHROMBIN TIME 31.7 SECONDS (11.8-14.0)
== END ==
LOC: M LAB 07:56
PROVIDERS: ATTEND Internal Medicine Cardiovascular Disease
DX: E78.2 Mixed hyperlipidemia (principal); I23.6 Thrombosis of atrium, auricular appendage, and ventricle as current complications following acute myocardial infarction; Z79.01 Long term (current) use of anticoagulants; I25.5 Ischemic cardiomyopathy

== ENCOUNTER → 2019-12-04 | Outpatient (CLI) | payer OTHER ==
--- NOTE | 2020-02-19 08:16 | REP ---
RENAL AND BLADDER ULTRASOUND: Delay in reporting results from hospital computer system malfunction from malware/ ransomware. HISTORY: Hematuria. FINDINGS: The right kidney measures 10.6 x 6.7 x 6.6 cm. The left kidney measures 10.2 x 5.7 x 5.5 cm. The kidneys are normal size. Renal cortical echogenicity is normal bilaterally. There is no hydronephrosis on the right or the left. There are no solid renal masses on the right or the left. There are 2 small right renal cysts, one laterally measuring up to 1.5 cm and the other exophytic anteriorly, measuring up to 2.9 cm. No renal calculi are identified on the right or the left. The Doppler resistive index of the parenchymal arteries in the right kidney is 0.60 and the left kidney is 0.61. IMPRESSION: There are 2 right renal simple cysts. Otherwise, negative renal ultrasound. BLADDER ULTRASOUND: There is a small bladder diverticulum posterolaterally on the left measuring 2.1 x 1.0 cm. The pre-void bladder volume is 256 ml. The post void bladder volume is 83 ml. There is technical difficulty performing the ultrasound studies because of patient body habitus. [facility]
== END ==
LOC: M WHC 14:34
PROVIDERS: ATTEND Nurse Practitioner Family
DX: N39.0 Urinary tract infection, site not specified (principal); N28.1 Cyst of kidney, acquired

== ENCOUNTER 2019-12-25 08:05 | Day surgery (SDC) | payer OTHER ==
--- NOTE | 2020-01-17 11:34 | ROOR ---
Patient Name: Adrian Bruce Procedure Date: 12/25/2019 8:17 AM Date of : 1960 Age: 59 Room: [facility] Gender: Male Note Status: Interventional Pain Physician Override Procedure: Colonoscopy Indications: Positive fecal immunochemical test Providers: Ceasar Harding MD Referring MD: Nataliia MUNSON NP Requesting Provider: Medicines: Monitored Anesthesia Care Complications: No immediate complications. Procedure: Pre-Anesthesia Assessment: - Prior to the procedure, a History and Physical was performed, and patient medications and allergies were reviewed. The patient is competent. The risks and benefits of the procedure and the sedation options and risks were discussed with the patient. All questions were answered and informed consent was obtained. Patient identification and proposed procedure were verified by the physician, the nurse and the anesthesiologist in the procedure room. Mental Status Examination: alert and oriented. Airway Examination: normal oropharyngeal airway and neck mobility. Respiratory Examination: clear to auscultation. CV Examination: normal. Prophylactic Antibiotics: The patient does not require prophylactic antibiotics. Prior Anticoagulants: The patient has taken Coumadin (warfarin), last dose was 5 days prior to procedure. ASA Grade Assessment: II - A patient with mild systemic disease. After reviewing the risks and benefits, the patient was deemed in satisfactory condition to undergo the procedure. The anesthesia plan was to use monitored anesthesia care (MAC). Immediately prior to administration of medications, the patient was re-assessed for adequacy to receive sedatives. The heart rate, respiratory rate, oxygen saturations, blood pressure, adequacy of pulmonary ventilation, and response to care were monitored throughout the procedure. The physical status of the patient was re-assessed after the procedure. The Colonoscope was introduced through the anus and advanced to the terminal ileum, with identification of the appendiceal orifice and IC valve. The colonoscopy was performed without difficulty. The patient tolerated the procedure well. The quality of the bowel preparation was good. The terminal ileum, ileocecal valve, appendiceal orifice, and rectum were photographed. Scope insertion time was 3 minutes. Scope withdrawal time was 9 minutes. The total duration of the procedure was 12 minutes. Findings: The perianal and digital rectal examinations were normal. The terminal ileum appeared normal. Two pedunculated and semi-sessile polyps were found in the descending colon and transverse colon. The polyps were 15 to 30 mm in size. These polyps were removed with a hot snare. Resection and retrieval were complete. To close a defect after polypectomy, three hemostatic clips were successfully placed. There was no bleeding at the end of the procedure. Verification of patient identification for the specimen was done by the physician and nurse using the patient's name, date and medical record number. Estimated blood loss was minimal. Multiple small and large-mouthed diverticula were found in the sigmoid colon. There was no evidence of diverticular bleeding. Non-bleeding external and internal hemorrhoids were found during retroflexion. The hemorrhoids were medium-sized. Impression: - The examined portion of the ileum was normal. - Two 15 to 30 mm polyps in the descending colon and in the transverse colon, removed with a hot snare. Resected and retrieved. Clips were placed. - Moderate diverticulosis in the sigmoid colon. There was no evidence of diverticular bleeding. - Non-bleeding external and internal hemorrhoids. Recommendation: - Patient has a contact number available for emergencies. The signs and symptoms of potential delayed complications were discussed with the patient. Return to normal activities tomorrow. Written discharge instructions were provided to the patient. - High fiber diet. - Continue present medications. - Use fiber, for example Citrucel, Fibercon, Konsyl or Metamucil. - Miralax 1 capful (17 grams) in 8 ounces of water PO BID for 5 days. - Await pathology results. - Repeat colonoscopy in 3 years for surveillance based on pathology results. - Telephone GI clinic for pathology results in 2 weeks. - Return to primary care physician. Ceasar Harding MD 12/25/2019 9:42:54 AM Number of Addenda: 0 Note Initiated On: 12/25/2019 8:17 AM Estimated Blood Loss: Estimated blood loss was minimal.
== END 2019-12-25 20:08 | disposition home or self-care (01) ==
LOC: M SDC 08:05
PROVIDERS: ATTEND Internal Medicine Gastroenterology
DX: K64.8 Other hemorrhoids (principal); C18.6 Malignant neoplasm of descending colon; K57.30 Diverticulosis of large intestine without perforation or abscess without bleeding; R19.5 Other fecal abnormalities; G47.30 Sleep apnea, unspecified; Z79.01 Long term (current) use of anticoagulants; Z79.82 Long term (current) use of aspirin; Z79.899 Other long term (current) drug therapy; Z95.810 Presence of automatic (implantable) cardiac defibrillator; Z95.5 Presence of coronary angioplasty implant and graft

== ENCOUNTER → 2020-01-01 | Outpatient (CLI) | payer OTHER ==
[2020-01-01 08:22] LABS: INR 2.58; PROTHROMBIN TIME 28.3 SECONDS (11.8-14.0)
== END ==
LOC: M LAB 07:20
PROVIDERS: ATTEND Internal Medicine Cardiovascular Disease
DX: I25.5 Ischemic cardiomyopathy (principal); I35.9 Nonrheumatic aortic valve disorder, unspecified

== ENCOUNTER → 2020-01-18 | Outpatient (CLI) | payer OTHER ==
--- NOTE | 2020-02-07 09:32 | REP ---
RIGHT UPPER QUADRANT ULTRASOUND: HISTORY: Elevated liver function tests. TECHNIQUE: Real time sonographic evaluation of the right upper quadrant performed. FINDINGS: Several gallstones are seen in the gallbladder. There is a 5 mm echogenic focus along the inner wall of the gallbladder which does not move and may represent a 5 mm polyp. There is no gallbladder wall thickening. There is no pericholecystic fluid. There is no intrahepatic or extrahepatic biliary dilatation, the common bile duct measuring 4 mm. The liver demonstrates diffuse increased echotexture compatible with diffuse fibrofatty infiltration. There is a cyst in the central aspect of the liver, 4 x 5 x 8 mm. The liver is mildly enlarged with a length of 19.1 cm. The visualized pancreas is grossly unremarkable, but not well evaluated due to overlying bowel gas. The right kidney demonstrates no hydronephrosis with normal size, 11.2 cm in length. There are multiple right renal cysts. The largest measures 3.7 x 2.2 x 2.5 cm. There is no free fluid. IMPRESSION: Mobile gallstones in the gallbladder. There also appears to be a 5 mm polyp along the inner wall of the gallbladder. No gallbladder wall thickening, pericholecystic fluid or biliary dilatation. There is mild hepatomegaly with diffuse fibrofatty infiltration of the liver. A subcentimeter cyst is seen centrally in the liver. There are multiple right renal cysts. MTDD
== END ==
LOC: M RAD 08:10
PROVIDERS: ATTEND Nurse Practitioner Family
DX: R79.89 Other specified abnormal findings of blood chemistry (principal); S02.651 Fracture of angle of right mandible; K80.20 Calculus of gallbladder without cholecystitis without obstruction; N28.1 Cyst of kidney, acquired

== ENCOUNTER → 2020-01-31 | Outpatient (REF) | payer OTHER, MEDICAID ==
[2020-01-31 13:24] LABS: BASO % 0.1 % (0.0-1.0); EOS # 0.2 10^3/uL (0.0-0.5); EOS % 3.2 % (0.0-3.0); HEMOGLOBIN 13.9 g/dl (13.5-17.5); LYMPH # 2.4 10^3/uL (1.5-5.0); LYMPH % 31.6 % (24.0-44.0); MEAN CORPUSCULAR HEMOGLOBIN 29.4 pg (27.0-33.0); MEAN CORPUSCULAR HGB CONC 32.3 g/dl (32.0-36.5); MEAN CORPUSCULAR VOLUME 91.1 fl (80.0-96.0); MONO # 0.8 10^3/uL (0.0-0.8); MONO % 10.9 % (0.0-5.0); NEUTROPHILS % 53.8 % (36.0-66.0); PLATELET COUNT, AUTOMATED 328 10^3/uL (150-450); RED BLOOD COUNT 4.72 10^6/uL (4.30-6.10); WHITE BLOOD COUNT 7.5 10^3/uL (4.0-10.0)
[2020-01-31 13:44] LABS: ALBUMIN 4.3 GM/DL (3.2-5.2); BILIRUBIN,TOTAL 0.4 MG/DL (0.2-1.0); CHOLESTEROL RISK RATIO 3.6 (<5); CREATININE FOR GFR 1.48 MG/DL (0.70-1.30); POTASSIUM SERUM 3.8 MEQ/L (3.5-5.1); TOTAL PROTEIN 7.4 GM/DL (6.4-8.2)
[2020-01-31 14:25] LABS: HEMOGLOBIN A1c 5.4 %
== END ==
LOC: M LAB REF 12:31
PROVIDERS: ATTEND Nurse Practitioner Family
DX: R31.9 Hematuria, unspecified (principal); R79.89 Other specified abnormal findings of blood chemistry; R73.03 Prediabetes; Z13.9 Encounter for screening, unspecified; E78.5 Hyperlipidemia, unspecified; I10 Essential (primary) hypertension

== ENCOUNTER → 2020-02-01 | Outpatient (CLI) | payer OTHER, MEDICAID ==
[2020-02-01 08:33] LABS: INR 3.9; PROTHROMBIN TIME 39.1 SECONDS (12.5-14.3)
== END ==
LOC: M LAB 08:03
PROVIDERS: ATTEND Internal Medicine Cardiovascular Disease
DX: I23.6 Thrombosis of atrium, auricular appendage, and ventricle as current complications following acute myocardial infarction (principal); I25.5 Ischemic cardiomyopathy; Z79.01 Long term (current) use of anticoagulants

== ENCOUNTER → 2020-02-15 | Outpatient (CLI) | payer OTHER, MEDICAID ==
[2020-02-15 09:11] LABS: INR 4.43; PROTHROMBIN TIME 43.3 SECONDS (12.5-14.3)
== END ==
LOC: M LAB 08:09
PROVIDERS: ATTEND Internal Medicine Cardiovascular Disease
DX: I23.6 Thrombosis of atrium, auricular appendage, and ventricle as current complications following acute myocardial infarction (principal); I25.5 Ischemic cardiomyopathy; Z79.01 Long term (current) use of anticoagulants

== ENCOUNTER → 2020-02-29 | Outpatient (CLI) | payer OTHER ==
[2020-02-29 10:02] LABS: INR 3.9; PROTHROMBIN TIME 39.1 SECONDS (12.5-14.3)
== END ==
LOC: M LAB 09:27
PROVIDERS: ATTEND Internal Medicine Cardiovascular Disease
DX: I23.6 Thrombosis of atrium, auricular appendage, and ventricle as current complications following acute myocardial infarction (principal); I25.5 Ischemic cardiomyopathy; Z79.01 Long term (current) use of anticoagulants

== ENCOUNTER → 2020-03-07 | Outpatient (CLI) | payer OTHER ==
[2020-03-07 10:00] LABS: CHOLESTEROL RISK RATIO 3.621 (<5)
== END ==
LOC: M LAB 08:39
PROVIDERS: ATTEND Internal Medicine Cardiovascular Disease
DX: E78.2 Mixed hyperlipidemia (principal); I25.10 Atherosclerotic heart disease of native coronary artery without angina pectoris; Z98.61 Coronary angioplasty status

== ENCOUNTER → 2020-03-14 | Outpatient (CLI) | payer OTHER ==
[2020-03-14 09:27] LABS: INR 3.18; PROTHROMBIN TIME 33.3 SECONDS (12.5-14.3)
== END ==
LOC: M LAB 08:18
PROVIDERS: ATTEND Internal Medicine Cardiovascular Disease
DX: I25.5 Ischemic cardiomyopathy (principal); Z79.01 Long term (current) use of anticoagulants; I23.6 Thrombosis of atrium, auricular appendage, and ventricle as current complications following acute myocardial infarction

== ENCOUNTER → 2020-03-28 | Outpatient (CLI) | payer OTHER ==
[2020-03-28 08:17] LABS: INR 3.1; PROTHROMBIN TIME 32.7 SECONDS (12.5-14.3)
== END ==
LOC: M LAB 07:46
PROVIDERS: ATTEND Internal Medicine Cardiovascular Disease
DX: I23.6 Thrombosis of atrium, auricular appendage, and ventricle as current complications following acute myocardial infarction (principal); I25.5 Ischemic cardiomyopathy; Z79.01 Long term (current) use of anticoagulants

== ENCOUNTER → 2020-04-10 | Outpatient (CLI) | payer OTHER ==
[~2020-04-10] MED LIST: ALBU8.5H; AMLO1TAB25; ATOR40TA75; FENO134C; LISI40TA; MAPA500T2 PO; MELA10CA2 PO; METO1TAB7; TRAZ-252; VITA200010; WARF-23
== END ==
LOC: M LABSMTC 10:37
PROVIDERS: ATTEND Anesthesiology
DX: Z01.812 Encounter for preprocedural laboratory examination (principal); Z20.828 Contact with and (suspected) exposure to other viral communicable diseases

== ENCOUNTER 2020-04-15 10:39 | Day surgery (SDC) | payer OTHER ==
[~2020-04-15] VITALS: Ht 182.9 cm; Wt 113.9 kg
[~2020-04-15 10:39] MED LIST changes: +NS 1,000 ML IV ONE
[2020-04-15] MEDS ORDERED: propofoL 200 MG/20 ML VIAL As Ordered ONE (11:03)
[2020-04-15] MEDS ORDERED: LIDOCAINE 2% 100MG/5ML SDV (FOR ANES.) As Ordered ONE (11:05)
[2020-04-15] MEDS ORDERED: ECOT81TA5 PO (12:16)
--- NOTE | 2020-04-15 13:11 | ROOR ---
Patient Name: Adrian Bruce Procedure Date: 04/15/2020 12:29 PM Date of : 1960 Age: 60 Room: [facility] Gender: Male Note Status: Finalized Procedure: Colonoscopy Indications: High risk colon cancer surveillance: Personal history of colon cancer Providers: Ceasar Harding MD Referring MD: Nataliia Medina NP Requesting Provider: Medicines: Monitored Anesthesia Care Complications: No immediate complications. Procedure: Pre-Anesthesia Assessment: - Prior to the procedure, a History and Physical was performed, and patient medications and allergies were reviewed. The patient is competent. The risks and benefits of the procedure and the sedation options and risks were discussed with the patient. All questions were answered and informed consent was obtained. Patient identification and proposed procedure were verified by the physician, the nurse and the anesthesiologist in the procedure room. Mental Status Examination: alert and oriented. Airway Examination: normal oropharyngeal airway and neck mobility. Respiratory Examination: clear to auscultation. CV Examination: normal. Prophylactic Antibiotics: The patient does not require prophylactic antibiotics. Prior Anticoagulants: The patient has taken no previous anticoagulant or antiplatelet agents. ASA Grade Assessment: II - A patient with mild systemic disease. After reviewing the risks and benefits, the patient was deemed in satisfactory condition to undergo the procedure. The anesthesia plan was to use monitored anesthesia care (MAC). Immediately prior to administration of medications, the patient was re-assessed for adequacy to receive sedatives. The heart rate, respiratory rate, oxygen saturations, blood pressure, adequacy of pulmonary ventilation, and response to care were monitored throughout the procedure. The physical status of the patient was re-assessed after the procedure. The Colonoscope was introduced through the anus and advanced to the terminal ileum, with identification of the appendiceal orifice and IC valve. The colonoscopy was performed without difficulty. The patient tolerated the procedure well. The quality of the bowel preparation was good. The ileocecal valve, appendiceal orifice, and rectum were photographed. Scope insertion time was 2 minutes. Scope withdrawal time was 10 minutes. The total duration of the procedure was 12 minutes. Findings: The perianal and digital rectal examinations were normal. The terminal ileum appeared normal. A 10 mm post polypectomy scar was found in the descending colon. The scar tissue was healthy in appearance. Non-bleeding external and internal hemorrhoids were found during retroflexion. The hemorrhoids were medium-sized. Impression: - The examined portion of the ileum was normal. - Post-polypectomy scar in the descending colon. - Non-bleeding external and internal hemorrhoids. - No specimens collected. Recommendation: - Patient has a contact number available for emergencies. The signs and symptoms of potential delayed complications were discussed with the patient. Return to normal activities tomorrow. Written discharge instructions were provided to the patient. - High fiber diet. - Continue present medications. - Await pathology results. - Repeat colonoscopy in 1 year for surveillance. - Return to GI clinic in 1 year. - Return to primary care physician. Procedure Code(s): --- Professional --- 88486, Colonoscopy, flexible; diagnostic, including collection of specimen(s) by brushing or washing, when performed (separate procedure) Diagnosis Code(s): --- Professional --- Z85.038, Personal history of other malignant neoplasm of large intestine K64.8, Other hemorrhoids Z98.890, Other specified postprocedural states CPT copyright 2019 [employer]. All rights reserved. The codes documented in this report are preliminary and upon implementation advisor review may be revised to meet current compliance requirements. Ceasar Harding MD Ceasar Harding MD 04/15/2020 1:11:19 PM Electronically signed by Ceasar Harding MD Number of Addenda: 0 Note Initiated On: 04/15/2020 12:29 PM Estimated Blood Loss: Estimated blood loss was minimal.
[2020-04-15 13:25] VITALS: BP 142/71
== END 2020-04-15 13:35 | disposition home or self-care (01) ==
LOC: M OPP 10:39
PROVIDERS: ATTEND Internal Medicine Gastroenterology
DX: Z85.038 Personal history of other malignant neoplasm of large intestine (principal); K64.8 Other hemorrhoids; Z08 Encounter for follow-up examination after completed treatment for malignant neoplasm; Z79.899 Other long term (current) drug therapy; Z79.82 Long term (current) use of aspirin; Z79.01 Long term (current) use of anticoagulants; Z87.891 Personal history of nicotine dependence; Z95.0 Presence of cardiac pacemaker

== ENCOUNTER → 2020-04-29 | Outpatient (REF) | payer OTHER ==
[~2020-04-29] MED LIST changes: +ECOT81TA5 PO; -NS 1,000 ML IV ONE
[2020-04-29 17:16] LABS: ALBUMIN 4.1 GM/DL (3.2-5.2); BILIRUBIN,TOTAL 0.5 MG/DL (0.2-1.0); CALCIUM LEVEL 9.4 MG/DL (8.5-10.1); CHOLESTEROL RISK RATIO 2.952 (<5); CREATININE FOR GFR 1.44 MG/DL (0.70-1.30); GLOMERULAR FILTRATION RATE 53.5 (>56); POTASSIUM SERUM 3.8 MEQ/L (3.5-5.1); TOTAL PROTEIN 7.7 GM/DL (6.4-8.2)
[2020-04-29 17:18] LABS: BASO % 0.3 % (0.0-1.0); EOS # 0.1 10^3/uL (0.0-0.5); HEMATOCRIT 44.7 % (42.0-52.0); HEMOGLOBIN 14.8 g/dl (13.5-17.5); LYMPH # 2.2 10^3/uL (1.5-5.0); LYMPH % 20.8 % (24.0-44.0); MEAN CORPUSCULAR HEMOGLOBIN 29.9 pg (27.0-33.0); MEAN CORPUSCULAR HGB CONC 33.1 g/dl (32.0-36.5); MEAN CORPUSCULAR VOLUME 90.3 fl (80.0-96.0); MONO # 1.1 10^3/uL (0.0-0.8); NEUTROPHILS # 7.1 10^3/uL (1.5-8.5); NEUTROPHILS % 67.4 % (36.0-66.0); PLATELET COUNT, AUTOMATED 378 10^3/uL (150-450); RED BLOOD COUNT 4.95 10^6/uL (4.30-6.10); WHITE BLOOD COUNT 10.5 10^3/uL (4.0-10.0)
[2020-04-29 17:24] LABS: TOTAL 25(OH) VITAMIN D 36.2 NG/ML (30.0-100.0)
== END ==
LOC: M LAB REF 16:31
PROVIDERS: ATTEND Nurse Practitioner Family
DX: R31.9 Hematuria, unspecified (principal); R79.89 Other specified abnormal findings of blood chemistry; R73.03 Prediabetes; Z13.9 Encounter for screening, unspecified; E66.09 Other obesity due to excess calories; D64.9 Anemia, unspecified; E55.9 Vitamin D deficiency, unspecified; E78.5 Hyperlipidemia, unspecified; I10 Essential (primary) hypertension

== ENCOUNTER → 2020-06-26 | Outpatient (REF) | payer OTHER ==
[~2020-06-26] MED LIST changes: -LISI40TA; +LISI40TA4
[2020-06-26 18:15] LABS: ALBUMIN 4.3 GM/DL (3.2-5.2); BILIRUBIN,TOTAL 0.3 MG/DL (0.2-1.0); CALCIUM LEVEL 9.4 MG/DL (8.5-10.1); CREATININE FOR GFR 1.4 MG/DL (0.70-1.30); GLOMERULAR FILTRATION RATE 55.2 (>56); TOTAL PROTEIN 7.3 GM/DL (6.4-8.2)
== END ==
LOC: M LAB REF 17:13
PROVIDERS: ATTEND Nurse Practitioner Family
DX: I10 Essential (primary) hypertension (principal)

== ENCOUNTER → 2020-09-30 | Outpatient (REF) | payer OTHER ==
[2020-09-30 12:51] LABS: BASO % 0.2 % (0.0-1.0); EOS # 0.3 10^3/uL (0.0-0.5); HEMATOCRIT 43.9 % (42.0-52.0); HEMOGLOBIN 14.5 g/dl (13.5-17.5); LYMPH # 2.3 10^3/uL (1.5-5.0); LYMPH % 24.8 % (24.0-44.0); MEAN CORPUSCULAR HEMOGLOBIN 30.6 pg (27.0-33.0); MEAN CORPUSCULAR VOLUME 92.6 fl (80.0-96.0); MONO # 0.7 10^3/uL (0.0-0.8); NEUTROPHILS # 5.8 10^3/uL (1.5-8.5); NEUTROPHILS % 63.7 % (36.0-66.0); PLATELET COUNT, AUTOMATED 353 10^3/uL (150-450); RED BLOOD COUNT 4.74 10^6/uL (4.30-6.10); WHITE BLOOD COUNT 9.1 10^3/uL (4.0-10.0)
[2020-09-30 13:30] LABS: ALBUMIN 4.1 GM/DL (3.2-5.2); BILIRUBIN,TOTAL 0.6 MG/DL (0.2-1.0); CALCIUM LEVEL 8.6 MG/DL (8.5-10.1); CHOLESTEROL RISK RATIO 3.043 (<5); CREATININE FOR GFR 1.32 MG/DL (0.70-1.30); FREE T4 0.92 NG/DL (0.76-1.46); GLOMERULAR FILTRATION RATE 59.1 (>56); POTASSIUM SERUM 4.1 MEQ/L (3.5-5.1); THYROID STIMULATING HORMONE 1.09 uIU/ML (0.358-3.740); TOTAL PROTEIN 7.3 GM/DL (6.4-8.2)
[2020-09-30 13:33] LABS: TOTAL 25(OH) VITAMIN D 35.1 NG/ML (30.0-100.0)
[2020-09-30 13:46] LABS: HEMOGLOBIN A1c 5.2 %
[2020-10-02 00:04] LABS: PSA TOTAL 0.7 ng/mL (0.0-4.0)
== END ==
LOC: M LAB REF 11:55
PROVIDERS: ATTEND Nurse Practitioner Family
DX: E66.9 Obesity, unspecified (principal); E78.5 Hyperlipidemia, unspecified

== ENCOUNTER → 2021-03-19 | Outpatient (CLI) | payer OTHER | LOC: M LABSMTC 11:17 | PROVIDERS: ATTEND Internal Medicine Gastroenterology | DX: Z01.818 Encounter for other preprocedural examination (principal); Z11.52 Encounter for screening for COVID-19 ==

== ENCOUNTER 2021-03-24 07:44 | Day surgery (SDC) | payer OTHER ==
[~2021-03-24] VITALS: Ht 182.9 cm; Wt 105.7 kg
[~2021-03-24 07:44] MED LIST changes: -ALBU8.5H; +ALBU8.5H INH; -AMLO1TAB25; +AMLO1TAB25 PO; +APAP500T10 PO; -ATOR40TA75; +ATOR40TA75 PO; +D32000TA2 PO; -FENO134C; +FENO134C PO; -LISI40TA4; +LISI40TA4 PO; -METO1TAB7; +METO1TAB7 PO; +NS 1,000 ML IV ONE; -TRAZ-252; +TRAZ-252 PO; +VITA30004 PO
[2021-03-24] MEDS ORDERED: propofoL 500 MG/50 ML VIAL As Ordered ONE (08:21)
[2021-03-24] MEDS ORDERED: LIDOCAINE 2% 100MG/5ML SDV (FOR ANES.) As Ordered ONE (08:21)
[2021-03-24] MEDS ORDERED: ePHEDrine SULFATE 25 MG/5 ML(5MG/ML) SYRINGE As Ordered ONE (09:48)
[2021-03-24] MEDS ORDERED: PHENYLephrine 500MCG 5ML (100MCG/ML) SYRINGE As Ordered ONE (09:51)
[2021-03-24 10:24] VITALS: BP 123/63
--- NOTE | 2021-03-24 10:49 | ROOR ---
Patient Name: Adrian Bruce Procedure Date: 03/24/2021 9:36 AM Date of : 1960 Age: 60 Room: [facility] Gender: Male Note Status: Finalized Procedure: Colonoscopy Indications: High risk colon cancer surveillance: Personal history of colon cancer Providers: Ceasar Harding MD Referring MD: Nataliia Medina NP Requesting Provider: Medicines: Monitored Anesthesia Care Complications: No immediate complications. Procedure: Pre-Anesthesia Assessment: - Prior to the procedure, a History and Physical was performed, and patient medications and allergies were reviewed. The patient is competent. The risks and benefits of the procedure and the sedation options and risks were discussed with the patient. All questions were answered and informed consent was obtained. Patient identification and proposed procedure were verified by the physician, the nurse and the anesthesiologist in the procedure room. Mental Status Examination: alert and oriented. Airway Examination: normal oropharyngeal airway and neck mobility. Respiratory Examination: clear to auscultation. CV Examination: normal. Prophylactic Antibiotics: The patient does not require prophylactic antibiotics. Prior Anticoagulants: The patient has taken no previous anticoagulant or antiplatelet agents. ASA Grade Assessment: II - A patient with mild systemic disease. After reviewing the risks and benefits, the patient was deemed in satisfactory condition to undergo the procedure. The anesthesia plan was to use monitored anesthesia care (MAC). Immediately prior to administration of medications, the patient was re-assessed for adequacy to receive sedatives. The heart rate, respiratory rate, oxygen saturations, blood pressure, adequacy of pulmonary ventilation, and response to care were monitored throughout the procedure. The physical status of the patient was re-assessed after the procedure. The Colonoscope was introduced through the anus and advanced to the terminal ileum, with identification of the appendiceal orifice and IC valve. The colonoscopy was performed without difficulty. The patient tolerated the procedure well. The quality of the bowel preparation was good. The terminal ileum, ileocecal valve, appendiceal orifice, and rectum were photographed. Scope insertion time was 2 minutes. Scope withdrawal time was 8 minutes. The total duration of the procedure was 12 minutes. Findings: The perianal and digital rectal examinations were normal. The terminal ileum appeared normal. Normal mucosa was found in the entire colon. There is no endoscopic evidence of polyps in the entire colon. Non-bleeding external and internal hemorrhoids were found during retroflexion. The hemorrhoids were medium-sized. Impression: - The examined portion of the ileum was normal. - Normal mucosa in the entire examined colon. - Non-bleeding external and internal hemorrhoids. - No specimens collected. Recommendation: - Patient has a contact number available for emergencies. The signs and symptoms of potential delayed complications were discussed with the patient. Return to normal activities tomorrow. Written discharge instructions were provided to the patient. - High fiber diet. - Continue present medications. - Await pathology results. - Repeat colonoscopy in 3 years per protocol and for surveillance. - Return to GI clinic in 3 years. - Return to primary care physician. Procedure Code(s): --- Professional --- 90583, Colonoscopy, flexible; diagnostic, including collection of specimen(s) by brushing or washing, when performed (separate procedure) Diagnosis Code(s): --- Professional --- Z85.038, Personal history of other malignant neoplasm of large intestine K64.8, Other hemorrhoids CPT copyright 2019 [employer]. All rights reserved. The codes documented in this report are preliminary and upon field marketing representative review may be revised to meet current compliance requirements. Ceasar Harding MD Ceasar Harding MD 03/24/2021 10:49:09 AM Electronically signed by Ceasar Harding MD Number of Addenda: 0 Note Initiated On: 03/24/2021 9:36 AM Estimated Blood Loss: Estimated blood loss: none.
== END 2021-03-24 11:00 | disposition home or self-care (01) ==
LOC: M OPP 07:44
PROVIDERS: ATTEND Internal Medicine Gastroenterology
DX: K64.8 Other hemorrhoids (principal); Z85.038 Personal history of other malignant neoplasm of large intestine; Z08 Encounter for follow-up examination after completed treatment for malignant neoplasm; Z79.82 Long term (current) use of aspirin; Z79.899 Other long term (current) drug therapy; Z87.891 Personal history of nicotine dependence; Z95.810 Presence of automatic (implantable) cardiac defibrillator
CPT/HCPCS: 45378; J2370

== ENCOUNTER → 2021-10-08 | Outpatient (CLI) | payer OTHER ==
[~2021-10-08] MED LIST changes: -FENO134C PO; +FENO134C16 PO; -NS 1,000 ML IV ONE
[2021-10-08 10:42] LABS: CHOLESTEROL RISK RATIO 3.333 (<5)
== END ==
LOC: M LAB 09:20
PROVIDERS: ATTEND Nurse Practitioner
DX: I25.5 Ischemic cardiomyopathy (principal)

== ENCOUNTER → 2022-08-06 | Outpatient (REF) | payer OTHER ==
[~2022-08-06] MED LIST changes: -FENO134C16 PO; +FENO134C20 PO
[2022-08-06 17:38] LABS: BASO % 0.1 % (0.0-1.0); EOS # 0.2 10^3/uL (0.0-0.5); EOS % 2.5 % (0.0-3.0); HEMATOCRIT 45.9 % (42.0-52.0); HEMOGLOBIN 14.8 g/dl (13.5-17.5); LYMPH # 1.3 10^3/uL (1.5-5.0); LYMPH % 14.3 % (24.0-44.0); MEAN CORPUSCULAR HEMOGLOBIN 30.5 pg (27.0-33.0); MEAN CORPUSCULAR HGB CONC 32.2 g/dl (32.0-36.5); MEAN CORPUSCULAR VOLUME 94.4 fl (80.0-96.0); MONO # 0.8 10^3/uL (0.0-0.8); MONO % 8.8 % (2.0-8.0); NEUTROPHILS # 6.8 10^3/uL (1.5-8.5); PLATELET COUNT, AUTOMATED 367 10^3/uL (150-450); RED BLOOD COUNT 4.86 10^6/uL (4.30-6.10); WHITE BLOOD COUNT 9.1 10^3/uL (4.0-10.0)
[2022-08-06 17:46] LABS: HEMOGLOBIN A1c 5.3 % (4.0-6.0)
[2022-08-06 18:09] LABS: ALBUMIN 4.1 G/DL (3.2-5.2); ALKALINE PHOSPHATASE 98 U/L (46-116); ALT/SGPT 22 U/L (7.0-40); AST/SGOT 74 U/L (<34); BILIRUBIN,TOTAL 0.8 MG/DL (0.3-1.2); BLOOD UREA NITROGEN 13 MG/DL (9-23); CALCIUM LEVEL 9.8 MG/DL (8.3-10.6); CARBON DIOXIDE LEVEL 26 MMOL/L (20-31); CHLORIDE LEVEL 107 MMOL/L (98-107); CHOLESTEROL LEVEL 116 MG/DL (<200); CHOLESTEROL RISK RATIO 2.51 (<5); CREATININE FOR GFR 1.21 MG/DL (0.70-1.30); GLOMERULAR FILTRATION RATE > 60.0 (>49); GLUCOSE, FASTING 82 MG/DL (74-106); HDL CHOLESTEROL 46.1 MG/DL (>40); LDL CHOLESTEROL 54.3 MG/DL (<100); NON-HDL-C 69.9 MG/DL; POTASSIUM SERUM 4.7 MMOL/L (3.5-5.1); SODIUM LEVEL 140 MMOL/L (136-145); TRIGLYCERIDES LEVEL 78 MG/DL (<150)
[2022-08-06 18:10] LABS: TOTAL 25(OH) VITAMIN D 41.3 NG/ML (20.0-100.0)
[2022-08-06 18:11] LABS: THYROID STIMULATING HORMONE 0.787 uIU/ML (0.55-4.78)
== END ==
LOC: M LAB REF 16:42
PROVIDERS: ATTEND Family Medicine Addiction Medicine
DX: D64.9 Anemia, unspecified (principal); E55.9 Vitamin D deficiency, unspecified; R73.03 Prediabetes

== ENCOUNTER → 2022-11-16 | Outpatient (REF) | payer OTHER ==
[2022-11-16 13:40] LABS: THYROID STIMULATING HORMONE 0.968 uIU/ML (0.55-4.78)
[2022-11-16 13:42] LABS: ALBUMIN 3.9 G/DL (3.2-5.2); ALKALINE PHOSPHATASE 77 U/L (46-116); ALT/SGPT < 9 U/L (7.0-40); AST/SGOT 21 U/L (<34); BILIRUBIN,TOTAL 0.7 MG/DL (0.3-1.2); BLOOD UREA NITROGEN 14 MG/DL (9-23); CALCIUM LEVEL 9.4 MG/DL (8.3-10.6); CARBON DIOXIDE LEVEL 27 MMOL/L (20-31); CHLORIDE LEVEL 104 MMOL/L (98-107); CHOLESTEROL LEVEL 114 MG/DL (<200); CHOLESTEROL RISK RATIO 3.21 (<5); CREATININE FOR GFR 1.16 MG/DL (0.70-1.30); GLOMERULAR FILTRATION RATE > 60.0 (>49); GLUCOSE, FASTING 85 MG/DL (74-106); HDL CHOLESTEROL 35.5 MG/DL (>40); LDL CHOLESTEROL 57.5 MG/DL (<100); NON-HDL-C 78.5 MG/DL; POTASSIUM SERUM 4.1 MMOL/L (3.5-5.1); SODIUM LEVEL 140 MMOL/L (136-145); TRIGLYCERIDES LEVEL 105 MG/DL (<150)
== END ==
LOC: M LAB REF 12:00
PROVIDERS: ATTEND Family Medicine Addiction Medicine
DX: E78.5 Hyperlipidemia, unspecified (principal); E66.9 Obesity, unspecified

== ENCOUNTER → 2023-09-29 | Outpatient (CLI) | payer OTHER | LOC: M RAD 15:46 | PROVIDERS: ATTEND Nurse Practitioner Family | DX: R16.0 Hepatomegaly, not elsewhere classified (principal); R91.8 Other nonspecific abnormal finding of lung field; R13.10 Dysphagia, unspecified; R63.4 Abnormal weight loss ==

== ENCOUNTER → 2023-10-27 | Outpatient (CLI) | payer OTHER ==
[~2023-10-27] MED LIST changes: +BACT800T5 PO; +DEXA4TA PO; +ISOVUE-370 76% 100ML VIAL As Ordered ONE; +NITR0.4S14; +ONDA-282
== END ==
LOC: M RAD 13:48
PROVIDERS: ATTEND Internal Medicine Hematology & Oncology
DX: C34.31 Malignant neoplasm of lower lobe, right bronchus or lung (principal)
CPT/HCPCS: 70470; Q9967

== ENCOUNTER → 2023-10-28 | Outpatient (CLI) | payer OTHER ==
[~2023-10-28] MED LIST changes: -ISOVUE-370 76% 100ML VIAL As Ordered ONE; +LIDOCAINE 1% MDV 20ML VIAL As Ordered ONE; +ONDANSETRON 4MG 2ML VIAL As Ordered ONE
[2023-10-28 09:50] VITALS: TEMP 98.8
[2023-10-28 10:10] LABS: INR 1.24; PROTHROMBIN TIME 15.2 SECONDS (12.5-14.5)
[2023-10-28] MEDS: ONDANSETRON 4MG 2ML VIAL IV ONE (10:25)
[2023-10-28 12:30] VITALS: BP 104/64; O2SAT 97
== END ==
LOC: M IRPRO 09:31
PROVIDERS: ATTEND Internal Medicine Hematology & Oncology
DX: C78.7 Secondary malignant neoplasm of liver and intrahepatic bile duct (principal); C34.31 Malignant neoplasm of lower lobe, right bronchus or lung
CPT/HCPCS: 47000; 76942; 85610; 88305; J2405

== ENCOUNTER → 2023-11-02 | Outpatient (CLI) | payer OTHER ==
[~2023-11-02] MED LIST changes: -LIDOCAINE 1% MDV 20ML VIAL As Ordered ONE; -ONDANSETRON 4MG 2ML VIAL As Ordered ONE
== END ==
LOC: M PLARAD 12:39
PROVIDERS: ATTEND Internal Medicine Hematology & Oncology
DX: C34.31 Malignant neoplasm of lower lobe, right bronchus or lung (principal)
CPT/HCPCS: 78815; A9552

== ENCOUNTER → 2023-11-09 | Outpatient (CLI) | payer OTHER ==
[~2023-11-09] MED LIST changes: +AMIO400T6 PO; +CEFD1CAP9 PO; +DEXA2TA PO; +DOXY-440 PO; -NITR0.4S14; +NITR0.4S14 PO; +OMEP40CA4 PO; -ONDA-282; +ONDA-282 SL; +PROT1TAB2 PO
== END ==
LOC: M ONCR 14:20
PROVIDERS: ATTEND General Practice
DX: C18.9 Malignant neoplasm of colon, unspecified (principal); C79.31 Secondary malignant neoplasm of brain; Z79.82 Long term (current) use of aspirin; Z79.899 Other long term (current) drug therapy; Z87.891 Personal history of nicotine dependence; Z86.018 Personal history of other benign neoplasm; Z95.5 Presence of coronary angioplasty implant and graft; Z95.0 Presence of cardiac pacemaker; Z80.1 Family history of malignant neoplasm of trachea, bronchus and lung

== ENCOUNTER 2023-11-13 12:27 | Inpatient (IN) | payer OTHER ==
[~2023-11-13] VITALS: Ht 177.8 cm; Wt 81.9 kg
[~2023-11-13 12:27] MED LIST changes: -AMIO400T6 PO; -CEFD1CAP9 PO; -DEXA2TA PO; -DOXY-440 PO
[2023-11-13 13:09] LABS: BASO # 0.1 10^3/uL (0.0-0.2); BASO % 0.2 % (0.0-1.0); HEMATOCRIT 37.4 % (42.0-52.0); HEMOGLOBIN 12.1 g/dl (13.5-17.5); LYMPH # 1.2 10^3/uL (1.5-5.0); LYMPH % 4.2 % (24.0-44.0); MEAN CORPUSCULAR HEMOGLOBIN 26.8 pg (27.0-33.0); MEAN CORPUSCULAR HGB CONC 32.4 g/dl (32.0-36.5); MEAN CORPUSCULAR VOLUME 82.9 fl (80.0-96.0); MONO # 2.1 10^3/uL (0.0-0.8); MONO % 6.9 % (2.0-8.0); NEUTROPHILS % 84.2 % (36.0-66.0); PLATELET COUNT, AUTOMATED 609 10^3/uL (150-450); RED BLOOD COUNT 4.51 10^6/uL (4.30-6.10); WHITE BLOOD COUNT 29.7 10^3/uL (4.0-10.0)
[2023-11-13] MEDS ORDERED: LIDOCAINE VISCOUS 2% SOLN 15ML UDC PO ONE (13:10)
[2023-11-13] MEDS ORDERED: MAALOX 30 ML SUSP *UDC PO ONE (13:10)
[2023-11-13 13:14] LABS: INR 1.06; PARTIAL THROMBOPLASTIN TIME 25.7 SECONDS (24.8-34.2); PROTHROMBIN TIME 13.5 SECONDS (12.5-14.5)
[2023-11-13 13:22] LABS: CK-MB VALUE MASS 4.9 NG/ML (<3.6); LIPASE 54 U/L (12-53)
[2023-11-13 13:24] LABS: ALBUMIN 2.4 G/DL (3.2-5.2); ALKALINE PHOSPHATASE 187 U/L (46-116); ALT/SGPT 13 U/L (7.0-40); AST/SGOT 57 U/L (<34); BILIRUBIN,DIRECT 0.2 MG/DL (<0.4); BILIRUBIN,TOTAL 0.5 MG/DL (0.3-1.2); BLOOD UREA NITROGEN 43 MG/DL (9-23); CALCIUM LEVEL 9.2 MG/DL (8.3-10.6); CARBON DIOXIDE LEVEL 26 MMOL/L (20-31); CHLORIDE LEVEL 110 MMOL/L (98-107); CREATININE FOR GFR 1.26 MG/DL (0.70-1.30); GLOMERULAR FILTRATION RATE > 60.0 (>49); GLUCOSE, FASTING 110 MG/DL (74-106); POTASSIUM SERUM 5.3 MMOL/L (3.5-5.1); SODIUM LEVEL 144 MMOL/L (136-145); TOTAL PROTEIN 5.8 G/DL (5.7-8.2)
[2023-11-13 13:26] LABS: THYROID STIMULATING HORMONE 0.132 uIU/ML (0.55-4.78)
[2023-11-13 13:29] LABS: CPK CREATINE PHOSPHOKINASE 127 U/L (46-171); MB/CK RELATIVE INDEX 3.85 (< OR =4)
[2023-11-13 14:12] LABS: CK-MB VALUE MASS 5.9 NG/ML (<3.6); MB/CK RELATIVE INDEX 4.46 (< OR =4)
[2023-11-13] MEDS ORDERED: HOME MED LIST COMPLETE! XX SCH (14:40)
[2023-11-13] MEDS: AMIODARONE HCL 150 MG in IV 1 EA IV ONE (17:24)
[2023-11-13] MEDS: AMIODARONE HCL 360 MG in IV 1 EA IV SCH ×2 (17:42→23:26)
[2023-11-13] MEDS ORDERED: NITROGLYCERIN 0.4MG SUBL TABLET SL SCH (17:50)
[2023-11-13] MEDS ORDERED: ACETAMINOPHEN TAB 650MG DOSE (2X325MG) PO PRN (17:50)
[2023-11-13] MEDS ORDERED: ONDANSETRON 4MG ORAL DISINTEGRATING TAB SL PRN (17:50)
[2023-11-13] MEDS ORDERED: CEFEPIME HCL 1 GM in D5W MINI-BAG PLUS 50 ML IV SCH (18:10)
[2023-11-13] MEDS ORDERED: SENOKOT S TAB PO PRN (18:25)
[2023-11-13 18:57] LABS: C REACTIVE PROTEIN QUANTITATIV 5.9 MG/DL (<1.0)
[2023-11-13 19:10] LABS: PROCALCITONIN 0.35 ng/ml
[2023-11-13 20:14] VITALS: BP 124/64; TEMP 98.2; O2SAT 97
[2023-11-13] MEDS: CEFEPIME HCL 2 GM in D5W MINI-BAG PLUS 50 ML IV SCH (21:42)
[2023-11-13] MEDS: dexAMETHasone 4 MG TAB PO SCH (21:42)
[2023-11-13] MEDS: traZODone 50 MG TAB PO SCH (21:42)
[2023-11-13] MEDS: ATORVASTATIN 20 MG TAB PO SCH (21:42)
[2023-11-13] MEDS: METOPROLOL SUCC (TopROL XL) 50MG **XL** TAB PO SCH (21:42)
[2023-11-14] VITALS (8 sets, daily range): BP systolic 110–140; BP diastolic 58–73; TEMP 97.5–97.8; O2SAT 75–97
[2023-11-14 05:34] LABS: HEMATOCRIT 32.3 % (42.0-52.0); HEMOGLOBIN 10.3 g/dl (13.5-17.5); MEAN CORPUSCULAR HEMOGLOBIN 26.2 pg (27.0-33.0); MEAN CORPUSCULAR HGB CONC 31.9 g/dl (32.0-36.5); MEAN CORPUSCULAR VOLUME 82.2 fl (80.0-96.0); RED BLOOD COUNT 3.93 10^6/uL (4.30-6.10); WHITE BLOOD COUNT 26.7 10^3/uL (4.0-10.0)
[2023-11-14 05:39] LABS: PLATELET COUNT, AUTOMATED 439 10^3/uL (150-450)
[2023-11-14 06:07] LABS: ALKALINE PHOSPHATASE 150 U/L (46-116); ALT/SGPT 10 U/L (7.0-40); AST/SGOT 57 U/L (<34); BILIRUBIN,TOTAL 0.3 MG/DL (0.3-1.2); BLOOD UREA NITROGEN 39 MG/DL (9-23); CALCIUM LEVEL 8.3 MG/DL (8.3-10.6); CARBON DIOXIDE LEVEL 23 MMOL/L (20-31); CHLORIDE LEVEL 108 MMOL/L (98-107); CREATININE FOR GFR 0.91 MG/DL (0.70-1.30); GLOMERULAR FILTRATION RATE > 60.0 (>49); GLUCOSE, FASTING 115 MG/DL (74-106); POTASSIUM SERUM 4.8 MMOL/L (3.5-5.1); SODIUM LEVEL 139 MMOL/L (136-145); TOTAL PROTEIN 4.8 G/DL (5.7-8.2)
[2023-11-14] MEDS: PANTOPRAZOLE 40MG TAB (PROTONIX) PO SCH (08:30)
[2023-11-15 03:25] VITALS: BP 115/69; TEMP 97.8; O2SAT 96
[2023-11-15 07:30] VITALS: BP 146/80; TEMP 97.2; O2SAT 95
[2023-11-15] MEDS: BACTRIM 160MG/800MG DS TAB PO SCH (08:45)
[2023-11-15 09:09] LABS: BASO # 0.1 10^3/uL (0.0-0.2); BASO % 0.2 % (0.0-1.0); HEMATOCRIT 35.8 % (42.0-52.0); HEMOGLOBIN 11.7 g/dl (13.5-17.5); LYMPH # 0.8 10^3/uL (1.5-5.0); LYMPH % 2.9 % (24.0-44.0); MEAN CORPUSCULAR HGB CONC 32.7 g/dl (32.0-36.5); MEAN CORPUSCULAR VOLUME 82.7 fl (80.0-96.0); MONO # 1.9 10^3/uL (0.0-0.8); MONO % 6.6 % (2.0-8.0); NEUTROPHILS # 24.6 10^3/uL (1.5-8.5); NEUTROPHILS % 87.8 % (36.0-66.0); PLATELET COUNT, AUTOMATED 508 10^3/uL (150-450); RED BLOOD COUNT 4.33 10^6/uL (4.30-6.10)
[2023-11-15 09:30] LABS: BLOOD UREA NITROGEN 36 MG/DL (9-23); CALCIUM LEVEL 8.8 MG/DL (8.3-10.6); CARBON DIOXIDE LEVEL 23 MMOL/L (20-31); CHLORIDE LEVEL 107 MMOL/L (98-107); CREATININE FOR GFR 0.92 MG/DL (0.70-1.30); GLOMERULAR FILTRATION RATE > 60.0 (>49); GLUCOSE, FASTING 114 MG/DL (74-106); MAGNESIUM LEVEL 1.9 MG/DL (1.8-2.4); POTASSIUM SERUM 4.4 MMOL/L (3.5-5.1); SODIUM LEVEL 138 MMOL/L (136-145)
[2023-11-15 12:02] VITALS: BP 145/71; TEMP 97.6; O2SAT 94
[2023-11-15] MEDS ORDERED: CEFD1CAP9 PO (12:09)
[2023-11-15] MEDS ORDERED: AMIO400T6 PO (12:09)
[2023-11-15] MEDS ORDERED: DOXY-440 PO (12:09)
[2023-11-15] MEDS: AMIODARONE 200 MG TAB (PACERONE) PO SCH (13:23)
== END 2023-11-15 14:07 | disposition home or self-care (01) | DRG 201 ==
LOC: EDBD 12:27 → M ED 12:27 → M ED INP 17:47 → M PCU 20:09
PROVIDERS: ADMIT Hospitalist; ATTEND Hospitalist
DX: I48.91 Unspecified atrial fibrillation (principal); C78.02 Secondary malignant neoplasm of left lung; C78.7 Secondary malignant neoplasm of liver and intrahepatic bile duct; I47.20 Ventricular tachycardia, unspecified; C79.31 Secondary malignant neoplasm of brain; C79.51 Secondary malignant neoplasm of bone; C18.9 Malignant neoplasm of colon, unspecified; E78.5 Hyperlipidemia, unspecified; I10 Essential (primary) hypertension; I25.10 Atherosclerotic heart disease of native coronary artery without angina pectoris; I25.2 Old myocardial infarction; Z79.899 Other long term (current) drug therapy; Z87.891 Personal history of nicotine dependence; Z79.82 Long term (current) use of aspirin

== ENCOUNTER 2023-11-24 15:28 | Outpatient (RCR) | payer OTHER ==
[~2023-11-24 15:28] MED LIST changes: +AMIO400T6 PO; +CEFD1CAP9 PO; +DEXA2TA PO; +DOXY-440 PO
[2023-12-06] MEDS ORDERED: ONDA-84 PO (10:21)
[2023-12-06] MEDS ORDERED: PROC10TA5 PO (10:22)
[2023-12-06] MEDS ORDERED: LOPE2TAB12 PO (10:24)
== END 2023-12-08 ==
LOC: M ONCR 15:28
PROVIDERS: ATTEND General Practice
DX: Z51.0 Encounter for antineoplastic radiation therapy (principal); C79.31 Secondary malignant neoplasm of brain

== ENCOUNTER → 2023-11-30 | Outpatient (CLI) | payer OTHER ==
[~2023-11-30] MED LIST changes: +LIDOCAINE 1% MDV 20ML VIAL As Ordered ONE; +MIDAZOLAM INJ 2MG/2ML VIAL As Ordered ONE; +ceFAZolin 2 GM/D5W 50 ML IV BAG As Ordered ONE; +fentaNYL 100 MCG/2 ML INJECTION As Ordered ONE
[2023-11-30 11:57] VITALS: TEMP 98.9
[2023-11-30] MEDS: NS 1,000 ML IV SCH (12:54)
[2023-11-30] MEDS: ceFAZolin SOD 2 GM in IV 1 EA IV ONE (12:54)
[2023-11-30 14:25] VITALS: BP 120/74; O2SAT 96
== END ==
LOC: M IRPRO 11:42
PROVIDERS: ATTEND Internal Medicine Hematology & Oncology
DX: C18.9 Malignant neoplasm of colon, unspecified (principal)
CPT/HCPCS: 36561; 99152; 99153; C1769; C1894; J0690; J2250; J3010

== ENCOUNTER 2024-01-10 16:07 | Emergency (ER) | payer OTHER ==
[~2024-01-10 16:07] MED LIST changes: +AMIO200T49 PO; +ELIQ2.5T PO; -LIDOCAINE 1% MDV 20ML VIAL As Ordered ONE; +LOPE2TAB12 PO; -MIDAZOLAM INJ 2MG/2ML VIAL As Ordered ONE; +ONDA-84 PO; +POTA-298 PO; +PROC10TA5 PO; +TRAM50TA2 PO; -ceFAZolin 2 GM/D5W 50 ML IV BAG As Ordered ONE; -fentaNYL 100 MCG/2 ML INJECTION As Ordered ONE
[2024-01-10 17:14] LABS: BASO % 0.5 % (0.0-1.0); EOS # 0.1 10^3/uL (0.0-0.5); EOS % 0.9 % (0.0-3.0); HEMATOCRIT 35.2 % (42.0-52.0); HEMOGLOBIN 11.1 g/dl (13.5-17.5); LYMPH # 1.3 10^3/uL (1.5-5.0); LYMPH % 20.5 % (24.0-44.0); MEAN CORPUSCULAR HEMOGLOBIN 27.2 pg (27.0-33.0); MEAN CORPUSCULAR HGB CONC 31.5 g/dl (32.0-36.5); MEAN CORPUSCULAR VOLUME 86.3 fl (80.0-96.0); MONO # 0.6 10^3/uL (0.0-0.8); MONO % 9.7 % (2.0-8.0); NEUTROPHILS # 4.3 10^3/uL (1.5-8.5); NEUTROPHILS % 66.7 % (36.0-66.0); PLATELET COUNT, AUTOMATED 536 10^3/uL (150-450); RED BLOOD COUNT 4.08 10^6/uL (4.30-6.10); WHITE BLOOD COUNT 6.4 10^3/uL (4.0-10.0)
[2024-01-10 17:30] LABS: CPK CREATINE PHOSPHOKINASE 46 U/L (46-171)
[2024-01-10 17:31] LABS: ALBUMIN 2.3 G/DL (3.2-5.2); ALKALINE PHOSPHATASE 265 U/L (46-116); ALT/SGPT 12 U/L (7.0-40); AST/SGOT 57 U/L (<34); BILIRUBIN,DIRECT 0.4 MG/DL (<0.4); BILIRUBIN,TOTAL 0.7 MG/DL (0.3-1.2); BLOOD UREA NITROGEN 14 MG/DL (9-23); CARBON DIOXIDE LEVEL 25 MMOL/L (20-31); CHLORIDE LEVEL 107 MMOL/L (98-107); CK-MB VALUE MASS < 1.0 NG/ML (<3.6); CREATININE FOR GFR 1.17 MG/DL (0.70-1.30); GLOMERULAR FILTRATION RATE > 60.0 (>49); GLUCOSE, FASTING 92 MG/DL (74-106); MB/CK RELATIVE INDEX 2.17 (< OR =4); POTASSIUM SERUM 4.1 MMOL/L (3.5-5.1); SODIUM LEVEL 140 MMOL/L (136-145); TOTAL PROTEIN 6.1 G/DL (5.7-8.2)
[2024-01-10 17:34] LABS: THYROID STIMULATING HORMONE 2.492 uIU/ML (0.55-4.78); THYROXINE (T4) 14.9 UG/DL (4.5-10.9)
[2024-01-10] MEDS ORDERED: ISOVUE-370 76% 100ML VIAL As Ordered ONE (18:24)
[2024-01-10 19:01] LABS: CK-MB VALUE MASS < 1.0 NG/ML (<3.6)
[2024-01-10 19:03] LABS: CPK CREATINE PHOSPHOKINASE 50 U/L (46-171)
[2024-01-10 21:49] VITALS: O2SAT 96
[2024-01-10 22:10] VITALS: BP 146/86; TEMP 98; O2SAT 97
== END 2024-01-10 22:30 | disposition home or self-care (01) ==
LOC: EDBD 16:07 → MERGE 16:07 → M ED 16:07 → CANBEDREQ 21:52 → M ED 22:30
DX: U07.1 COVID-19 (principal); I44.4 Left anterior fascicular block; I45.9 Conduction disorder, unspecified; I10 Essential (primary) hypertension; F41.9 Anxiety disorder, unspecified; C18.9 Malignant neoplasm of colon, unspecified; C79.00 Secondary malignant neoplasm of unspecified kidney and renal pelvis; C78.00 Secondary malignant neoplasm of unspecified lung; Z79.52 Long term (current) use of systemic steroids; Z79.83 Long term (current) use of bisphosphonates; Z79.811 Long term (current) use of aromatase inhibitors; Z79.899 Other long term (current) drug therapy
CPT/HCPCS: 36415; 71045; 71275; 80048; 80076; 82550; 82553; 83605; 83880; 84436; 84443; 84484; 85025; 86850; 86900; 86901; 87040; 87486; 87581; 87633; 87798; 93005; 93041; 94760; 99285; Q9967

== ENCOUNTER 2024-01-24 07:33 | Observation (INO) | payer OTHER ==
[~2024-01-24] VITALS: Ht 180.3 cm; Wt 69.6 kg
[2024-01-24 08:25] LABS: HEMATOCRIT 35.1 % (42.0-52.0); HEMOGLOBIN 11.1 g/dl (13.5-17.5); MEAN CORPUSCULAR HEMOGLOBIN 27.9 pg (27.0-33.0); MEAN CORPUSCULAR HGB CONC 31.6 g/dl (32.0-36.5); MEAN CORPUSCULAR VOLUME 88.2 fl (80.0-96.0); PLATELET COUNT, AUTOMATED 417 10^3/uL (150-450); RED BLOOD COUNT 3.98 10^6/uL (4.30-6.10); WHITE BLOOD COUNT 3.4 10^3/uL (4.0-10.0)
[2024-01-24 09:02] LABS: ALBUMIN 2.4 G/DL (3.2-5.2); ALKALINE PHOSPHATASE 188 U/L (46-116); ALT/SGPT < 9 U/L (7.0-40); AST/SGOT 37 U/L (<34); BILIRUBIN,DIRECT 0.4 MG/DL (<0.4); BILIRUBIN,TOTAL 0.7 MG/DL (0.3-1.2); BLOOD UREA NITROGEN 17 MG/DL (9-23); CALCIUM LEVEL 8.2 MG/DL (8.3-10.6); CARBON DIOXIDE LEVEL 25 MMOL/L (20-31); CHLORIDE LEVEL 108 MMOL/L (98-107); CREATININE FOR GFR 1.31 MG/DL (0.70-1.30); GLUCOSE, FASTING 81 MG/DL (74-106); POTASSIUM SERUM 4.6 MMOL/L (3.5-5.1); SODIUM LEVEL 138 MMOL/L (136-145); TOTAL PROTEIN 5.8 G/DL (5.7-8.2)
[2024-01-24] MEDS: NS 1,000 ML IV ONE (10:27)
[2024-01-24] MEDS: D5W/0.9% SODIUM CHLORIDE 1,000 ML IV SCH (13:28)
[2024-01-24] MEDS ORDERED: BACTDSTA PO (14:12)
[2024-01-24] MEDS ORDERED: ELIQ5TAB PO (14:12)
[2024-01-24] MEDS ORDERED: HOME MED LIST COMPLETE! XX SCH (14:20)
[2024-01-24 17:42] VITALS: BP 117/81; TEMP 98.1; O2SAT 96
[2024-01-24 19:49] VITALS: BP 120/80; TEMP 97.9; O2SAT 97
[2024-01-25 04:02] VITALS: BP 123/80; TEMP 97.9; O2SAT 96
[2024-01-25] MEDS: ACETAMINOPHEN TAB 650MG DOSE (2X325MG) PO PRN (05:01)
[2024-01-25] MEDS ORDERED: ALBUTEROL 90 MCG/ACT 8GM HFA INHALER INH PRN (10:50)
[2024-01-25] MEDS ORDERED: LOPERAMIDE 2 MG CAPLET PO PRN (10:50)
[2024-01-25] MEDS ORDERED: traMADol 50 MG TAB PO PRN (10:50)
[2024-01-25 12:00] VITALS: BP 128/84; TEMP 97.7; O2SAT 97
[2024-01-25] MEDS ORDERED: PROCHLORPERAZINE 5MG TAB PO PRN (12:00)
[2024-01-25 12:26] LABS: INR 1.35; PARTIAL THROMBOPLASTIN TIME 32.2 SECONDS (24.8-34.2); PROTHROMBIN TIME 16.2 SECONDS (12.5-14.5)
[2024-01-25] MEDS: PANTOPRAZOLE 40MG TAB (PROTONIX) PO SCH (12:51)
[2024-01-25] MEDS: AMIODARONE 200 MG TAB (PACERONE) PO SCH (12:51)
[2024-01-25] MEDS: APIXABAN 5 MG TAB (ELIQUIS) PO SCH (12:51)
[2024-01-25] MEDS: FLUBLOK(EGGFREE) TRIVAL(24-25) VACCINE PF 0.5ML SYRINGE 18YRS & OLDER IM.IMMUN ONE (18:36)
[2024-01-25 19:46] VITALS: BP 131/85; TEMP 98.1; O2SAT 97
[2024-01-25 20:51] LABS: HEMATOCRIT 29.9 % (42.0-52.0); HEMOGLOBIN 9.4 g/dl (13.5-17.5); MEAN CORPUSCULAR HEMOGLOBIN 27.7 pg (27.0-33.0); MEAN CORPUSCULAR HGB CONC 31.4 g/dl (32.0-36.5); MEAN CORPUSCULAR VOLUME 88.2 fl (80.0-96.0); PLATELET COUNT, AUTOMATED 312 10^3/uL (150-450); RED BLOOD COUNT 3.39 10^6/uL (4.30-6.10); WHITE BLOOD COUNT 4.9 10^3/uL (4.0-10.0)
[2024-01-25] MEDS: traZODone 50 MG TAB PO SCH (21:10)
[2024-01-25] MEDS: METOPROLOL SUCC (TopROL XL) 50MG **XL** TAB PO SCH (21:10)
[2024-01-25] MEDS: ATORVASTATIN 20 MG TAB PO SCH (21:11)
[2024-01-25 22:35] LABS: ALBUMIN 1.9 G/DL (3.2-5.2); ALKALINE PHOSPHATASE 155 U/L (46-116); ALT/SGPT < 9 U/L (7.0-40); AST/SGOT 27 U/L (<34); BILIRUBIN,TOTAL 0.4 MG/DL (0.3-1.2); BLOOD UREA NITROGEN 12 MG/DL (9-23); CALCIUM LEVEL 7.4 MG/DL (8.3-10.6); CARBON DIOXIDE LEVEL 22 MMOL/L (20-31); CHLORIDE LEVEL 112 MMOL/L (98-107); CREATININE FOR GFR 0.88 MG/DL (0.70-1.30); GLOMERULAR FILTRATION RATE > 60.0 (>49); GLUCOSE, FASTING 118 MG/DL (74-106); POTASSIUM SERUM 3.3 MMOL/L (3.5-5.1); SODIUM LEVEL 140 MMOL/L (136-145); TOTAL PROTEIN 4.9 G/DL (5.7-8.2)
[2024-01-26 04:00] VITALS: BP 140/86; TEMP 97.7; O2SAT 97
[2024-01-26 06:16] LABS: HEMOGLOBIN 9.1 g/dl (13.5-17.5); MEAN CORPUSCULAR HEMOGLOBIN 27.7 pg (27.0-33.0); MEAN CORPUSCULAR HGB CONC 31.4 g/dl (32.0-36.5); MEAN CORPUSCULAR VOLUME 88.1 fl (80.0-96.0); PLATELET COUNT, AUTOMATED 301 10^3/uL (150-450); RED BLOOD COUNT 3.29 10^6/uL (4.30-6.10); WHITE BLOOD COUNT 4.7 10^3/uL (4.0-10.0)
[2024-01-26] MEDS ORDERED: ACETAMINOPHEN 650MG SUPP PR PRN (10:35)
[2024-01-26] MEDS ORDERED: SCOPOLAMINE 1MG TRANSDERMAL PATCH TOP PRN (10:35)
[2024-01-26] MEDS ORDERED: BISACODYL 10MG SUPP PR PRN (10:35)
[2024-01-26] MEDS ORDERED: ATROPINE SULFATE 1% OPHTH SOLN 2ML BTL SL PRN (10:35)
[2024-01-26] MEDS: MIRTAZAPINE 15 MG TAB PO SCH (21:05)
[2024-01-26 21:06] VITALS: BP 128/77; TEMP 97.9; O2SAT 96
[2024-01-27] MEDS ORDERED: PERMETHRIN 5% CREAM 60 GM TOP SCH
[2024-01-27 03:58] VITALS: BP 128/76; TEMP 97.7; O2SAT 95
[2024-01-27] MEDS: MORPHINE 10MG/0.5ML ORAL CONCENTRATE SOLUTION U/D SL PRN (09:55)
[2024-01-27] MEDS: PERMETHRIN 5% CREAM 60 GM TOP ONE (18:09)
[2024-01-27 19:43] VITALS: BP 130/77; TEMP 97.9; O2SAT 95
[2024-01-27] MEDS: LORazepam 1 MG TAB PO PRN (21:25)
[2024-01-29] MEDS: ONDANSETRON 4MG ORAL DISINTEGRATING TAB PO PRN (08:37)
[2024-01-30] MEDS ORDERED: BISACODYL 10MG SUPP PR PRN (08:05)
[2024-01-30] MEDS ORDERED: FLEET ENEMA PR PRN (08:05)
[2024-01-30] MEDS: MOM 30ML SUSPENSION UDC PO PRN (08:41)
[2024-02-03] MEDS: PERMETHRIN 5% CREAM 60 GM TOP ONE (18:45)
[2024-02-05] MEDS: BENZONATATE 100MG CAPSULE PO PRN (09:36)
[2024-02-05] MEDS: HYOSCYAMINE SULFATE 0.125 MG SUBL TABLET PO PRN (18:06)
[2024-02-06] MEDS: BENZONATATE 100MG CAPSULE PO PRN (17:11)
[2024-02-10] MEDS: SENOKOT S TAB PO PRN (05:58)
[2024-02-10 20:33] VITALS: BP 138/87
[2024-02-16 23:54] VITALS: O2SAT 95
[2024-02-24] MEDS ORDERED: ACETAMINOPHEN 325 MG TAB PO PRN (11:30)
[2024-02-25] MEDS: CEFDINIR 300 MG CAP (OMNICEF) PO SCH (21:02)
[2024-03-10 21:38] VITALS: BP 124/84
[2024-03-23] MEDS: NYSTATIN 100,000 UNITS/GM TOPICAL PWD 15GM TOP SCH (09:00)
== END 2024-03-27 15:45 | disposition expired ==
LOC: EDBD 07:33 → M ED 07:33 → M ED INP 07:34 → M MSPAV 17:42
PROVIDERS: ADMIT Internal Medicine Nephrology; ATTEND Internal Medicine
DX: C18.9 Malignant neoplasm of colon, unspecified (principal); Z51.5 Encounter for palliative care; C78.7 Secondary malignant neoplasm of liver and intrahepatic bile duct; C78.02 Secondary malignant neoplasm of left lung; C79.70 Secondary malignant neoplasm of unspecified adrenal gland; C79.31 Secondary malignant neoplasm of brain; C79.51 Secondary malignant neoplasm of bone; R62.7 Adult failure to thrive; N39.0 Urinary tract infection, site not specified; I25.10 Atherosclerotic heart disease of native coronary artery without angina pectoris; I25.2 Old myocardial infarction; Z98.61 Coronary angioplasty status; Z95.810 Presence of automatic (implantable) cardiac defibrillator; Z79.01 Long term (current) use of anticoagulants; I10 Essential (primary) hypertension; E78.5 Hyperlipidemia, unspecified; G47.33 Obstructive sleep apnea (adult) (pediatric); D64.9 Anemia, unspecified; Z86.16 Personal history of COVID-19; F32.A Depression, unspecified; F43.20 Adjustment disorder, unspecified; G47.00 Insomnia, unspecified; E55.9 Vitamin D deficiency, unspecified; Z79.899 Other long term (current) drug therapy; Z23 Encounter for immunization
CPT/HCPCS: 36415; 36591; 71045; 71250; 74176; 80048; 80053; 80076; 81001; 82270; 82378; 85027; 85610; 85730; 87088; 87186; 87635; 90673; 92526; 92610; 96361; 96374; 97161; 97165; 97530; 99285; G0008